=== PATIENT | female | born 1955 | race Caucasian/White ===

== ENCOUNTER 2017-02-14 12:26 | Inpatient (IN) | payer OTHER ==
[2017-02-14 13:34] LABS: ADD MAN DIFF? NO
[2017-02-14 13:38] LABS: WHITE BLOOD COUNT 10.7 10^3/ul (4.8-10.8)
[2017-02-14 13:38] LABS: BASOPHILS % 0.3 % (0.0-2.0); EOSINOPHILS # 0.1 10^3/ul (0.0-0.5); EOSINOPHILS % 0.5 % (0.0-7.0); HEMOGLOBIN 9.9 g/dl (12.0-16.0); LYMPHOCYTES # 2.4 10^3/ul (0.8-2.9); LYMPHOCYTES % 22.9 % (15.0-51.0); MEAN CORPUSCULAR HEMOGLOBIN 30.6 pg (29.0-33.0); MEAN CORPUSCULAR HGB CONC 31.9 g/dl (32.0-37.0); MEAN CORPUSCULAR VOLUME 95.7 fl (82.0-101.0); MEAN PLATELET VOLUME 8.8 fl (7.4-10.4); MONOCYTE # 0.7 10^3/ul (0.3-0.9); MONOCYTES % 6.7 % (0.0-11.0); NEUTROPHIL # 7.4 10^3/ul (1.6-7.5); NEUTROPHILS % 69.3 % (39.0-77.0); PLATELET COUNT 445 10^3/UL (140-415); RED BLOOD COUNT 3.24 10^6/ul (4.20-5.40); RED CELL DISTRIBUTION WIDTH 14.2 % (11.5-14.5)
[2017-02-14 14:00] LABS: ALANINE AMINOTRANSFERASE 69 IU/L (13-69); ALBUMIN 3.8 g/dl (3.3-4.9); ALBUMIN/GLOBULIN RATIO 0.76; ALKALINE PHOSPHATASE 436 IU/L (42-121); ANION GAP 17 (8-16); ASPARTATE AMINO TRANSFERASE 43 IU/L (15-46); BILIRUBIN,INDIRECT 0.2 mg/dl (0-1.1); BILIRUBIN,TOTAL 0.2 mg/dl (0.2-1.3); BLOOD UREA NITROGEN 13 mg/dl (7-20); CALCIUM 8.9 mg/dl (8.4-10.2); CARBON DIOXIDE 19 mmol/L (21-31); CHLORIDE 104 mmol/L (97-110); CREATININE 0.61 mg/dl (0.44-1.00); GLUCOSE 82 mg/dl (70-220); LIPASE 330 U/L (23-300); POTASSIUM 3.4 mmol/L (3.5-5.1); SODIUM 137 mmol/L (135-144); TOTAL PROTEIN 8.8 g/dl (6.1-8.1)
[2017-02-14] MEDS ORDERED: NA PHOSPHATE/BIPHOS 133 ML ENEMA PR (16:00)
[2017-02-14] MEDS ORDERED: ONDANSETRON 4 MG INJ IV (16:00)
[2017-02-14] MEDS ORDERED: ALBUTEROL/IPRATROPIUM (NEB) 3 ML AMP HHN (16:00)
[2017-02-14] MEDS ORDERED: ACETAMINOPHEN 325 MG TAB PO (16:00)
[2017-02-14] MEDS ORDERED: DOCUSATE SODIUM 100 MG CAP PO (16:00)
[2017-02-14] MEDS ORDERED: MAGNESIUM HYDROXIDE 30ML CUP PO (16:00)
[2017-02-14] MEDS: PROMETHAZINE (1.25 MG/ML) 5 ML CUP PO (16:00)
[2017-02-14] MEDS ORDERED: hydrALAzine 20 MG INJ IV (16:00)
[2017-02-14] MEDS ORDERED: NITROGLYCERIN (SL) 0.4 MG TAB SL (16:00)
[2017-02-14] MEDS: LORAZEPAM 1 MG TAB PO (16:00)
[2017-02-14] MEDS ORDERED: LORAZEPAM 2 MG INJ IV (16:00)
[2017-02-14 17:21] LABS: INR 1.08; PT RATIO 1.1
[2017-02-14 17:22] LABS: PARTIAL THROMBOPLASTIN TIME 43.2 Sec (25.0-35.0)
[2017-02-14] MEDS ORDERED: TOPIRAMATE 200 MG GTB (21:00)
[2017-02-14] MEDS: METOPROLOL 25 MG TAB GTB (23:04)
[2017-02-14] MEDS: SOD CHLORIDE 0.45% 1,000 ML IV (23:04)
[2017-02-14] MEDS: DOCUSATE SODIUM 100 MG CAP PO (23:05)
[2017-02-14] MEDS: HEPARIN 5,000 UNIT/0.5 ML VIAL SC (23:07)
[2017-02-15] MEDS: PROMETHAZINE (1.25 MG/ML PO SYG) PO ×2 (02:20→06:24)
[2017-02-15] MEDS: PHENYTOIN (25 MG/ML PO SYG) GTB ×4 (02:21→20:48)
[2017-02-15] MEDS: SOD CHLORIDE 0.45% 1,000 ML IV ×2 (05:20→13:56)
[2017-02-15 06:07] LABS: ADD MAN DIFF? NO
[2017-02-15 06:17] LABS: WHITE BLOOD COUNT 8.9 10^3/ul (4.8-10.8)
[2017-02-15 06:17] LABS: BASOPHILS % 0.4 % (0.0-2.0); EOSINOPHILS % 0.4 % (0.0-7.0); HEMATOCRIT 28.7 % (37.0-47.0); HEMOGLOBIN 9.4 g/dl (12.0-16.0); LYMPHOCYTES % 22.5 % (15.0-51.0); MEAN CORPUSCULAR HEMOGLOBIN 30.8 pg (29.0-33.0); MEAN CORPUSCULAR HGB CONC 32.8 g/dl (32.0-37.0); MEAN CORPUSCULAR VOLUME 94.1 fl (82.0-101.0); MEAN PLATELET VOLUME 9.3 fl (7.4-10.4); MONOCYTE # 0.6 10^3/ul (0.3-0.9); MONOCYTES % 6.8 % (0.0-11.0); NEUTROPHIL # 6.2 10^3/ul (1.6-7.5); NEUTROPHILS % 69.7 % (39.0-77.0); PLATELET COUNT 413 10^3/UL (140-415); RED BLOOD COUNT 3.05 10^6/ul (4.20-5.40); RED CELL DISTRIBUTION WIDTH 14.2 % (11.5-14.5)
[2017-02-15 06:33] LABS: ANION GAP 17 (8-16); BLOOD UREA NITROGEN 12 mg/dl (7-20); CALCIUM 8.7 mg/dl (8.4-10.2); CARBON DIOXIDE 20 mmol/L (21-31); CHLORIDE 106 mmol/L (97-110); CREATININE 0.53 mg/dl (0.44-1.00); GLUCOSE 82 mg/dl (70-220); MAGNESIUM 1.9 mg/dl (1.7-2.5); PHOSPHORUS 4.3 mg/dl (2.5-4.9); POTASSIUM 3.6 mmol/L (3.5-5.1); SODIUM 139 mmol/L (135-144)
[2017-02-15 06:37] LABS: CHOL/HDL RATIO 4.2 RATIO; HDL CHOLESTEROL 41 mg/dl (35-98); LDL CHOLESTEROL,CALCULATED 100 mg/dl; TRIGLYCERIDES 172 mg/dl (0-149)
[2017-02-15 06:37] LABS: CHOLESTEROL 175 mg/dl (100-200)
[2017-02-15 06:51] LABS: HEMOGLOBIN A1C 4.8 % (0-5.9)
[2017-02-15 07:08] LABS: THYROID STIMULATING HORMONE 0.908 MIU/L (0.465-4.680)
[2017-02-15] MEDS: METOPROLOL 25 MG TAB GTB ×2 (09:03→20:48)
[2017-02-15] MEDS: LANSOPRAZOLE 30 MG CAP GTB (09:03)
[2017-02-15] MEDS: ESCITALOPRAM 10 MG TAB GTB (09:03)
[2017-02-15] MEDS: MULTIVITAMINS THERAPEUTIC TAB GTB (09:03)
[2017-02-15] MEDS: DOCUSATE SODIUM 100 MG CAP PO (09:03)
[2017-02-15] MEDS: LEVOFLOXACIN 750MG/D5W (PMX) 150 ML IVPB (09:09)
[2017-02-15] MEDS: HEPARIN 5,000 UNIT/0.5 ML VIAL SC ×2 (09:24→20:54)
[2017-02-15] MEDS: DIPHENHYDRAMINE 25 MG CAP PO (11:11)
[2017-02-15] MEDS: PROMETHAZINE/DM (CUP) PO ×2 (11:17→17:30)
[2017-02-15] MEDS: DOCUSATE SODIUM 10 MG/ML (10ML CUP) PO (20:48)
[2017-02-16] MEDS: SOD CHLORIDE 0.45% 1,000 ML IV ×3 (05:31→22:00)
[2017-02-16] MEDS: PROMETHAZINE/DM (CUP) PO ×4 (05:31→17:42)
[2017-02-16] MEDS: PHENYTOIN (25 MG/ML PO SYG) GTB ×3 (08:54→21:59)
[2017-02-16] MEDS: DOCUSATE SODIUM 10 MG/ML (10ML CUP) PO ×2 (08:55→21:59)
[2017-02-16] MEDS: ESCITALOPRAM 10 MG TAB GTB (08:55)
[2017-02-16] MEDS: LANSOPRAZOLE 30 MG CAP GTB (08:55)
[2017-02-16] MEDS: MULTIVITAMINS THERAPEUTIC TAB GTB (08:55)
[2017-02-16] MEDS: METOPROLOL 25 MG TAB GTB ×2 (08:56→21:59)
[2017-02-16] MEDS: HEPARIN 5,000 UNIT/0.5 ML VIAL SC ×2 (09:00→22:18)
[2017-02-16] MEDS: LEVOFLOXACIN 750MG/D5W (PMX) 150 ML IVPB (09:09)
[2017-02-16 11:13] LABS: ADD MAN DIFF? NO
[2017-02-16 11:19] LABS: BASOPHILS % 0.4 % (0.0-2.0); EOSINOPHILS % 0.1 % (0.0-7.0); HEMATOCRIT 30.1 % (37.0-47.0); HEMOGLOBIN 9.8 g/dl (12.0-16.0); LYMPHOCYTES # 2.1 10^3/ul (0.8-2.9); LYMPHOCYTES % 25.4 % (15.0-51.0); MEAN CORPUSCULAR HEMOGLOBIN 30.2 pg (29.0-33.0); MEAN CORPUSCULAR HGB CONC 32.6 g/dl (32.0-37.0); MEAN CORPUSCULAR VOLUME 92.9 fl (82.0-101.0); MEAN PLATELET VOLUME 9.3 fl (7.4-10.4); MONOCYTE # 0.6 10^3/ul (0.3-0.9); MONOCYTES % 7.2 % (0.0-11.0); NEUTROPHIL # 5.6 10^3/ul (1.6-7.5); NEUTROPHILS % 66.4 % (39.0-77.0); PLATELET COUNT 402 10^3/UL (140-415); RED BLOOD COUNT 3.24 10^6/ul (4.20-5.40); RED CELL DISTRIBUTION WIDTH 13.7 % (11.5-14.5)
[2017-02-16 11:19] LABS: WHITE BLOOD COUNT 8.4 10^3/ul (4.8-10.8)
[2017-02-16 11:44] LABS: LIPASE 364 U/L (23-300)
[2017-02-16 11:45] LABS: ANION GAP 19 (8-16); BLOOD UREA NITROGEN 9 mg/dl (7-20); CARBON DIOXIDE 22 mmol/L (21-31); CHLORIDE 102 mmol/L (97-110); CREATININE 0.51 mg/dl (0.44-1.00); GLUCOSE 85 mg/dl (70-220); POTASSIUM 3.6 mmol/L (3.5-5.1); SODIUM 139 mmol/L (135-144)
[2017-02-16] MEDS: IOHEXOL 350MG/ML 50 ML BTL (17:14)
[2017-02-17] MEDS: PROMETHAZINE/DM (CUP) PO ×4 (05:24→18:00)
[2017-02-17] MEDS: LANSOPRAZOLE 30 MG CAP GTB (08:41)
[2017-02-17] MEDS: DOCUSATE SODIUM 10 MG/ML (10ML CUP) PO ×2 (08:41→22:10)
[2017-02-17] MEDS: MULTIVITAMINS THERAPEUTIC TAB GTB (08:41)
[2017-02-17] MEDS: PHENYTOIN (25 MG/ML PO SYG) GTB ×3 (08:42→22:11)
[2017-02-17] MEDS: ESCITALOPRAM 10 MG TAB GTB (08:42)
[2017-02-17] MEDS: METOPROLOL 25 MG TAB GTB ×2 (08:42→22:15)
[2017-02-17] MEDS: LEVOFLOXACIN 750MG/D5W (PMX) 150 ML IVPB (08:42)
[2017-02-17] MEDS: HEPARIN 5,000 UNIT/0.5 ML VIAL SC ×2 (08:56→21:00)
[2017-02-17] MEDS: SOD CHLORIDE 0.45% 1,000 ML IV ×2 (10:40→15:43)
[2017-02-17 11:18] LABS: ADD MAN DIFF? NO
[2017-02-17 11:24] LABS: BASOPHILS % 0.2 % (0.0-2.0); EOSINOPHILS % 0.1 % (0.0-7.0); HEMOGLOBIN 9.3 g/dl (12.0-16.0); LYMPHOCYTES # 1.2 10^3/ul (0.8-2.9); LYMPHOCYTES % 10.2 % (15.0-51.0); MEAN CORPUSCULAR HEMOGLOBIN 31.2 pg (29.0-33.0); MEAN CORPUSCULAR HGB CONC 33.2 g/dl (32.0-37.0); MEAN PLATELET VOLUME 8.9 fl (7.4-10.4); MONOCYTE # 0.8 10^3/ul (0.3-0.9); MONOCYTES % 7.1 % (0.0-11.0); NEUTROPHIL # 9.6 10^3/ul (1.6-7.5); NEUTROPHILS % 82.1 % (39.0-77.0); PLATELET COUNT 421 10^3/UL (140-415); RED BLOOD COUNT 2.98 10^6/ul (4.20-5.40); RED CELL DISTRIBUTION WIDTH 13.8 % (11.5-14.5)
[2017-02-17 11:24] LABS: WHITE BLOOD COUNT 11.7 10^3/ul (4.8-10.8)
[2017-02-17 11:50] LABS: ANION GAP 17 (8-16); BLOOD UREA NITROGEN 7 mg/dl (7-20); CALCIUM 8.4 mg/dl (8.4-10.2); CARBON DIOXIDE 24 mmol/L (21-31); CHLORIDE 98 mmol/L (97-110); CREATININE 0.53 mg/dl (0.44-1.00); GLUCOSE 118 mg/dl (70-220); SODIUM 136 mmol/L (135-144)
[2017-02-17] MEDS: TOPIRAMATE 100 MG TAB GTB ×2 (12:37→22:11)
[2017-02-17] MEDS: ACETAMINOPHEN 650MG/20.3ML CUP GTB (14:51)
[2017-02-17] MEDS: ONDANSETRON 4 MG INJ IV (22:35)
[2017-02-18] MEDS: SOD CHLORIDE 0.45% 1,000 ML IV ×3 (05:16→13:20)
[2017-02-18] MEDS: ACETAMINOPHEN 650MG/20.3ML CUP GTB (05:25)
[2017-02-18] MEDS: PROMETHAZINE/DM (CUP) PO ×4 (05:26→17:55)
[2017-02-18] MEDS: LANSOPRAZOLE 30 MG CAP GTB (08:45)
[2017-02-18] MEDS: DOCUSATE SODIUM 10 MG/ML (10ML CUP) PO ×2 (08:45→21:38)
[2017-02-18] MEDS: ESCITALOPRAM 10 MG TAB GTB (08:45)
[2017-02-18] MEDS: MULTIVITAMINS THERAPEUTIC TAB GTB (08:45)
[2017-02-18] MEDS: LEVOFLOXACIN 750MG/D5W (PMX) 150 ML IVPB (08:46)
[2017-02-18] MEDS: TOPIRAMATE 100 MG TAB GTB ×2 (08:46→21:38)
[2017-02-18] MEDS: PHENYTOIN (25 MG/ML PO SYG) GTB ×3 (08:54→21:37)
[2017-02-18] MEDS: HEPARIN 5,000 UNIT/0.5 ML VIAL SC ×2 (08:54→21:39)
[2017-02-18] MEDS: METOPROLOL 25 MG TAB GTB ×2 (08:56→21:38)
[2017-02-18 10:31] LABS: ADD MAN DIFF? NO
[2017-02-18 10:35] LABS: BASOPHILS % 0.2 % (0.0-2.0); EOSINOPHILS % 0.2 % (0.0-7.0); HEMATOCRIT 27.5 % (37.0-47.0); LYMPHOCYTES % 15.1 % (15.0-51.0); MEAN CORPUSCULAR HEMOGLOBIN 30.7 pg (29.0-33.0); MEAN CORPUSCULAR HGB CONC 32.7 g/dl (32.0-37.0); MEAN CORPUSCULAR VOLUME 93.9 fl (82.0-101.0); MEAN PLATELET VOLUME 8.7 fl (7.4-10.4); MONOCYTE # 1.2 10^3/ul (0.3-0.9); MONOCYTES % 9.3 % (0.0-11.0); NEUTROPHILS % 74.8 % (39.0-77.0); PLATELET COUNT 400 10^3/UL (140-415); RED BLOOD COUNT 2.93 10^6/ul (4.20-5.40); RED CELL DISTRIBUTION WIDTH 13.7 % (11.5-14.5)
[2017-02-18 10:35] LABS: WHITE BLOOD COUNT 13.3 10^3/ul (4.8-10.8)
[2017-02-18 11:00] LABS: ANION GAP 15 (8-16); BLOOD UREA NITROGEN 3 mg/dl (7-20); CARBON DIOXIDE 24 mmol/L (21-31); CHLORIDE 104 mmol/L (97-110); CREATININE 0.59 mg/dl (0.44-1.00); GLUCOSE 105 mg/dl (70-220); POTASSIUM 3.2 mmol/L (3.5-5.1); SODIUM 140 mmol/L (135-144)
[2017-02-18 11:01] LABS: CALCIUM 8.9 mg/dl (8.4-10.2)
[2017-02-18] MEDS: POTASSIUM CHLORIDE 250 ML IVPB ×2 (13:11→17:01)
[2017-02-19] MEDS: SOD CHLORIDE 0.45% 1,000 ML IV (00:21)
[2017-02-19] MEDS: PROMETHAZINE/DM (CUP) PO ×3 (05:43→12:00)
[2017-02-19] MEDS: LEVOFLOXACIN 750MG/D5W (PMX) 150 ML IVPB (08:52)
[2017-02-19] MEDS: TOPIRAMATE 100 MG TAB GTB ×2 (08:53→20:44)
[2017-02-19] MEDS: LANSOPRAZOLE 30 MG CAP GTB (08:53)
[2017-02-19] MEDS: ESCITALOPRAM 10 MG TAB GTB (08:53)
[2017-02-19] MEDS: DOCUSATE SODIUM 10 MG/ML (10ML CUP) PO ×2 (08:53→20:43)
[2017-02-19] MEDS: MULTIVITAMINS THERAPEUTIC TAB GTB (08:53)
[2017-02-19] MEDS: PHENYTOIN (25 MG/ML PO SYG) GTB ×3 (08:54→20:43)
[2017-02-19] MEDS: HEPARIN 5,000 UNIT/0.5 ML VIAL SC (08:55)
[2017-02-19 09:52] LABS: ADD MAN DIFF? NO
[2017-02-19] MEDS: METOPROLOL 25 MG TAB GTB ×2 (09:57→20:44)
[2017-02-19 09:58] LABS: WHITE BLOOD COUNT 13.2 10^3/ul (4.8-10.8)
[2017-02-19 09:58] LABS: BASOPHILS % 0.2 % (0.0-2.0); HEMATOCRIT 26.4 % (37.0-47.0); HEMOGLOBIN 8.7 g/dl (12.0-16.0); LYMPHOCYTES % 15.2 % (15.0-51.0); MEAN CORPUSCULAR HEMOGLOBIN 30.9 pg (29.0-33.0); MEAN CORPUSCULAR VOLUME 93.6 fl (82.0-101.0); MEAN PLATELET VOLUME 8.8 fl (7.4-10.4); MONOCYTE # 1.1 10^3/ul (0.3-0.9); MONOCYTES % 8.4 % (0.0-11.0); NEUTROPHILS % 75.9 % (39.0-77.0); PLATELET COUNT 381 10^3/UL (140-415); RED BLOOD COUNT 2.82 10^6/ul (4.20-5.40); RED CELL DISTRIBUTION WIDTH 14.1 % (11.5-14.5)
[2017-02-19 10:33] LABS: ANION GAP 13 (8-16); BLOOD UREA NITROGEN 5 mg/dl (7-20); CALCIUM 8.6 mg/dl (8.4-10.2); CARBON DIOXIDE 22 mmol/L (21-31); CHLORIDE 104 mmol/L (97-110); CREATININE 0.59 mg/dl (0.44-1.00); GLUCOSE 106 mg/dl (70-220); POTASSIUM 3.3 mmol/L (3.5-5.1); SODIUM 136 mmol/L (135-144)
[2017-02-19] MEDS: D5W-0.45 NACL + KCL 30 MEQ 1,000 ML IV ×2 (20:30→21:45)
[2017-02-19] MEDS: POTASSIUM CHLORIDE 20 MEQ POWDER FOR ORAL SOLN GTB (20:44)
[2017-02-20] MEDS ORDERED: EPHEDrine SULFATE 50 MG/5 ML SYG IV (06:30)
[2017-02-20] MEDS ORDERED: HYDROmorphONE (0.2 MG/ML) 10ML SYG IV ×3 (06:30)
[2017-02-20] MEDS ORDERED: ONDANSETRON 4 MG INJ IV (06:30)
[2017-02-20] MEDS ORDERED: MIDAZOLAM 1 MG/ML 2 ML INJ IV (06:30)
[2017-02-20] MEDS ORDERED: hydrALAzine 20 MG INJ IV (06:30)
[2017-02-20] MEDS ORDERED: morphine (1 MG/ML) 10ML SYRINGE IV ×3 (06:30)
[2017-02-20] MEDS ORDERED: ATROPINE 1 MG/10 ML SYRINGE IV (06:30)
[2017-02-20] MEDS ORDERED: OXYCODONE/ACETAMINOPHEN (5/325) TAB PO ×2 (06:30)
[2017-02-20] MEDS ORDERED: LABETALOL HCL 20MG INJ IV (06:30)
[2017-02-20] MEDS ORDERED: DIPHENHYDRAMINE 50 MG INJ IV (06:30)
[2017-02-20] MEDS ORDERED: MEPERIDINE 25 MG INJ IV (06:30)
[2017-02-20] MEDS ORDERED: FENTAnyl 50 MCG/ML VIAL IV ×2 (06:30)
[2017-02-20] MEDS: DOCUSATE SODIUM 10 MG/ML (10ML CUP) PO ×2 (09:00→20:20)
[2017-02-20] MEDS: TOPIRAMATE 100 MG TAB GTB ×2 (09:00→20:23)
[2017-02-20] MEDS: LANSOPRAZOLE 30 MG CAP GTB (09:00)
[2017-02-20] MEDS: ESCITALOPRAM 10 MG TAB GTB (09:00)
[2017-02-20] MEDS: MULTIVITAMINS THERAPEUTIC TAB GTB (09:00)
[2017-02-20] MEDS: METOPROLOL 25 MG TAB GTB ×2 (09:00→21:00)
[2017-02-20] MEDS: PHENYTOIN (25 MG/ML PO SYG) GTB ×3 (09:00→20:19)
[2017-02-20] MEDS: ACETAMINOPHEN 650MG/20.3ML CUP GTB (10:04)
[2017-02-20] MEDS: D5W-0.45 NACL + KCL 30 MEQ 1,000 ML IV ×2 (10:16→17:41)
[2017-02-20] MEDS ORDERED: GLYCOPYRROLATE 0.4 MG INJ (10:28)
[2017-02-20] MEDS ORDERED: LIDOCAINE 2% (SDV) 5 ML INJ (10:28)
[2017-02-20] MEDS ORDERED: ROCURONIUM 50 MG INJ (10:28)
[2017-02-20] MEDS ORDERED: PROPOFOL 20 ML (10:28)
[2017-02-20] MEDS ORDERED: NEOSTIGMINE 3 MG/3 ML SYRINGE (10:28)
[2017-02-20] MEDS ORDERED: MIDAZOLAM 1 MG/ML 2 ML INJ (10:29)
[2017-02-20] MEDS ORDERED: ONDANSETRON 4 MG INJ (10:29)
[2017-02-20] MEDS ORDERED: FENTAnyl 50 MCG/ML VIAL (10:29)
[2017-02-20] MEDS ORDERED: IOHEXOL 300MG/ML 30 ML BTL (11:22)
[2017-02-20] MEDS ORDERED: DEXAMETHASONE 4 MG/ML 1 ML INJ (12:38)
[2017-02-21] MEDS: D5W-0.45 NACL + KCL 30 MEQ 1,000 ML IV ×2 (01:06→11:38)
[2017-02-21] MEDS: ONDANSETRON 4 MG INJ IV (03:06)
[2017-02-21] MEDS: HYDROCODONE/APAP (5/325) TAB PO (05:11)
[2017-02-21 06:27] LABS: ADD MAN DIFF? NO
[2017-02-21 06:31] LABS: WHITE BLOOD COUNT 17.9 10^3/ul (4.8-10.8)
[2017-02-21 06:31] LABS: BASOPHILS % 0.1 % (0.0-2.0); HEMATOCRIT 25.4 % (37.0-47.0); HEMOGLOBIN 8.5 g/dl (12.0-16.0); LYMPHOCYTES # 0.8 10^3/ul (0.8-2.9); LYMPHOCYTES % 4.3 % (15.0-51.0); MEAN CORPUSCULAR HEMOGLOBIN 30.5 pg (29.0-33.0); MEAN CORPUSCULAR HGB CONC 33.5 g/dl (32.0-37.0); MONOCYTE # 0.6 10^3/ul (0.3-0.9); MONOCYTES % 3.2 % (0.0-11.0); NEUTROPHIL # 16.4 10^3/ul (1.6-7.5); NEUTROPHILS % 91.8 % (39.0-77.0); PLATELET COUNT 368 10^3/UL (140-415); RED BLOOD COUNT 2.79 10^6/ul (4.20-5.40); RED CELL DISTRIBUTION WIDTH 13.7 % (11.5-14.5)
[2017-02-21 06:56] LABS: ANION GAP 15 (8-16); BLOOD UREA NITROGEN 7 mg/dl (7-20); CALCIUM 8.4 mg/dl (8.4-10.2); CARBON DIOXIDE 18 mmol/L (21-31); CHLORIDE 106 mmol/L (97-110); CREATININE 0.64 mg/dl (0.44-1.00); GLUCOSE 141 mg/dl (70-220); POTASSIUM 3.3 mmol/L (3.5-5.1); SODIUM 136 mmol/L (135-144)
[2017-02-21] MEDS: METOPROLOL 25 MG TAB GTB ×2 (09:00→21:39)
[2017-02-21] MEDS: TOPIRAMATE 100 MG TAB GTB ×2 (09:02→21:37)
[2017-02-21] MEDS: ESCITALOPRAM 10 MG TAB GTB (09:03)
[2017-02-21] MEDS: MULTIVITAMINS THERAPEUTIC TAB GTB (09:03)
[2017-02-21] MEDS: PHENYTOIN (25 MG/ML PO SYG) GTB ×3 (09:03→21:00)
[2017-02-21] MEDS: LANSOPRAZOLE 30 MG CAP GTB (09:03)
[2017-02-21] MEDS: DOCUSATE SODIUM 10 MG/ML (10ML CUP) PO ×2 (09:03→21:00)
[2017-02-21] MEDS: SOD CHLORIDE 0.9% 1,000 ML IV ×2 (09:52→11:57)
[2017-02-21] MEDS: ACETAMINOPHEN 650MG/20.3ML CUP GTB (10:44)
[2017-02-21 12:56] LABS: LACTIC ACID 2.3 mmol/L (0.5-2.0)
[2017-02-21] MEDS: PIPER-TAZO 3.375 GM IV (PMX) 50 ML IVPB ×2 (13:58→19:01)
[2017-02-21] MEDS ORDERED: METOPROLOL 5 MG INJ (14:57)
[2017-02-21] MEDS: METOPROLOL 5 MG INJ IV (15:14)
[2017-02-21] MEDS ORDERED: DILTIAZEM 25 MG INJ (15:16)
[2017-02-21] MEDS ORDERED: DIGOXIN 500 MCG INJ IV ×2 (15:39→17:30)
[2017-02-21] MEDS: DILTIAZEM 25 MG INJ IV (15:41)
[2017-02-21] MEDS: DIGOXIN 500 MCG INJ IV (15:45)
[2017-02-22] MEDS: PIPER-TAZO 3.375 GM IV (PMX) 50 ML IVPB ×4 (00:26→17:33)
[2017-02-22] MEDS: D5W-0.45 NACL + KCL 30 MEQ 1,000 ML IV (05:25)
[2017-02-22] MEDS: LANSOPRAZOLE 30 MG CAP GTB (08:20)
[2017-02-22] MEDS: MULTIVITAMINS THERAPEUTIC TAB GTB (08:20)
[2017-02-22 08:21] LABS: ADD MAN DIFF? NO
[2017-02-22] MEDS: TOPIRAMATE 100 MG TAB GTB ×2 (08:22→20:18)
[2017-02-22] MEDS: ESCITALOPRAM 10 MG TAB GTB (08:22)
[2017-02-22] MEDS: DOCUSATE SODIUM 10 MG/ML (10ML CUP) PO ×2 (08:22→20:18)
[2017-02-22 08:27] LABS: WHITE BLOOD COUNT 14.2 10^3/ul (4.8-10.8)
[2017-02-22 08:27] LABS: BASOPHILS % 0.2 % (0.0-2.0); EOSINOPHILS % 0.1 % (0.0-7.0); HEMOGLOBIN 7.3 g/dl (12.0-16.0); LYMPHOCYTES # 1.4 10^3/ul (0.8-2.9); LYMPHOCYTES % 9.8 % (15.0-51.0); MEAN CORPUSCULAR HEMOGLOBIN 30.5 pg (29.0-33.0); MEAN CORPUSCULAR HGB CONC 33.2 g/dl (32.0-37.0); MEAN CORPUSCULAR VOLUME 92.1 fl (82.0-101.0); MEAN PLATELET VOLUME 9.6 fl (7.4-10.4); MONOCYTE # 0.9 10^3/ul (0.3-0.9); MONOCYTES % 6.6 % (0.0-11.0); NEUTROPHIL # 11.7 10^3/ul (1.6-7.5); NEUTROPHILS % 82.7 % (39.0-77.0); PLATELET COUNT 327 10^3/UL (140-415); RED BLOOD COUNT 2.39 10^6/ul (4.20-5.40); RED CELL DISTRIBUTION WIDTH 13.9 % (11.5-14.5)
[2017-02-22] MEDS: METOPROLOL 25 MG TAB GTB ×2 (08:32→20:19)
[2017-02-22 08:59] LABS: ANION GAP 14 (8-16); BLOOD UREA NITROGEN 6 mg/dl (7-20); CALCIUM 7.9 mg/dl (8.4-10.2); CARBON DIOXIDE 17 mmol/L (21-31); CHLORIDE 108 mmol/L (97-110); CREATININE 0.61 mg/dl (0.44-1.00); GLUCOSE 103 mg/dl (70-220); POTASSIUM 3.1 mmol/L (3.5-5.1); SODIUM 136 mmol/L (135-144)
[2017-02-22] MEDS: PHENYTOIN (25 MG/ML PO SYG) GTB ×3 (09:31→20:18)
[2017-02-23] MEDS: PIPER-TAZO 3.375 GM IV (PMX) 50 ML IVPB ×5 (06:00→23:56)
[2017-02-23 06:05] LABS: ADD MAN DIFF? NO
[2017-02-23 06:33] LABS: BASOPHILS % 0.3 % (0.0-2.0); EOSINOPHILS % 0.1 % (0.0-7.0); HEMATOCRIT 22.2 % (37.0-47.0); HEMOGLOBIN 7.6 g/dl (12.0-16.0); LYMPHOCYTES # 1.5 10^3/ul (0.8-2.9); LYMPHOCYTES % 10.2 % (15.0-51.0); MEAN CORPUSCULAR HEMOGLOBIN 30.9 pg (29.0-33.0); MEAN CORPUSCULAR HGB CONC 34.2 g/dl (32.0-37.0); MEAN CORPUSCULAR VOLUME 90.2 fl (82.0-101.0); MEAN PLATELET VOLUME 9.3 fl (7.4-10.4); MONOCYTE # 1.2 10^3/ul (0.3-0.9); MONOCYTES % 8.3 % (0.0-11.0); NEUTROPHIL # 12.1 10^3/ul (1.6-7.5); NEUTROPHILS % 80.4 % (39.0-77.0); PLATELET COUNT 359 10^3/UL (140-415); RED BLOOD COUNT 2.46 10^6/ul (4.20-5.40); RED CELL DISTRIBUTION WIDTH 13.8 % (11.5-14.5)
[2017-02-23 07:03] LABS: ANION GAP 14 (8-16); BLOOD UREA NITROGEN 6 mg/dl (7-20); CALCIUM 8.2 mg/dl (8.4-10.2); CARBON DIOXIDE 18 mmol/L (21-31); CHLORIDE 103 mmol/L (97-110); CREATININE 0.63 mg/dl (0.44-1.00); GLUCOSE 98 mg/dl (70-220); SODIUM 132 mmol/L (135-144)
[2017-02-23 07:22] LABS: POTASSIUM 2.9 mmol/L (3.5-5.1)
[2017-02-23 07:52] LABS: MAGNESIUM 1.5 mg/dl (1.7-2.5)
[2017-02-23] MEDS ORDERED: POTASSIUM CHLORIDE 250 ML IVPB (09:00)
[2017-02-23] MEDS: DOCUSATE SODIUM 10 MG/ML (10ML CUP) PO ×2 (09:01→20:25)
[2017-02-23] MEDS: LANSOPRAZOLE 30 MG CAP GTB (09:01)
[2017-02-23] MEDS: TOPIRAMATE 100 MG TAB GTB ×2 (09:02→20:25)
[2017-02-23] MEDS: ESCITALOPRAM 10 MG TAB GTB (09:02)
[2017-02-23] MEDS: MULTIVITAMINS THERAPEUTIC TAB GTB (09:02)
[2017-02-23] MEDS: METOPROLOL 25 MG TAB GTB ×2 (09:03→20:25)
[2017-02-23] MEDS: POTASSIUM CHLORIDE 20 MEQ POWDER FOR ORAL SOLN GTB (09:20)
[2017-02-23] MEDS: PHENYTOIN (25 MG/ML PO SYG) GTB ×3 (09:38→20:26)
[2017-02-23] MEDS: POTASSIUM CHLORIDE 20 MEQ POWDER FOR ORAL SOLN PO (11:21)
[2017-02-23] MEDS: MAGNESIUM OXIDE 400 MG TAB PO (13:53)
[2017-02-23] MEDS: ONDANSETRON 4 MG INJ IV (20:30)
[2017-02-24] MEDS: ONDANSETRON 4 MG INJ IV (04:28)
[2017-02-24] MEDS: ACETAMINOPHEN 650MG/20.3ML CUP GTB (04:28)
[2017-02-24] MEDS: PIPER-TAZO 3.375 GM IV (PMX) 50 ML IVPB ×3 (05:00→18:17)
[2017-02-24 05:55] LABS: ADD MAN DIFF? NO
[2017-02-24 06:08] LABS: BASOPHILS % 0.2 % (0.0-2.0); HEMOGLOBIN 7.8 g/dl (12.0-16.0); LYMPHOCYTES # 1.4 10^3/ul (0.8-2.9); LYMPHOCYTES % 8.3 % (15.0-51.0); MEAN CORPUSCULAR HEMOGLOBIN 30.8 pg (29.0-33.0); MEAN CORPUSCULAR HGB CONC 33.9 g/dl (32.0-37.0); MEAN CORPUSCULAR VOLUME 90.9 fl (82.0-101.0); MEAN PLATELET VOLUME 9.3 fl (7.4-10.4); MONOCYTE # 1.4 10^3/ul (0.3-0.9); MONOCYTES % 7.9 % (0.0-11.0); NEUTROPHIL # 14.2 10^3/ul (1.6-7.5); NEUTROPHILS % 82.8 % (39.0-77.0); PLATELET COUNT 404 10^3/UL (140-415); RED BLOOD COUNT 2.53 10^6/ul (4.20-5.40); RED CELL DISTRIBUTION WIDTH 13.8 % (11.5-14.5)
[2017-02-24 06:08] LABS: WHITE BLOOD COUNT 17.2 10^3/ul (4.8-10.8)
[2017-02-24 06:13] LABS: INR 1.22; PROTIME 15.6 Sec (11.9-14.9); PT RATIO 1.2
[2017-02-24 06:14] LABS: PARTIAL THROMBOPLASTIN TIME 44.3 Sec (25.0-35.0)
[2017-02-24 06:16] LABS: LACTIC ACID 0.8 mmol/L (0.5-2.0)
[2017-02-24 06:29] LABS: ALANINE AMINOTRANSFERASE 60 IU/L (13-69); ALBUMIN/GLOBULIN RATIO 0.65; ALKALINE PHOSPHATASE 381 IU/L (42-121); AMYLASE 62 U/L (11-123); ANION GAP 16 (8-16); ASPARTATE AMINO TRANSFERASE 29 IU/L (15-46); BILIRUBIN,INDIRECT 0.4 mg/dl (0-1.1); BILIRUBIN,TOTAL 0.6 mg/dl (0.2-1.3); BLOOD UREA NITROGEN 6 mg/dl (7-20); CALCIUM 8.4 mg/dl (8.4-10.2); CARBON DIOXIDE 18 mmol/L (21-31); CHLORIDE 100 mmol/L (97-110); CREATININE 0.65 mg/dl (0.44-1.00); GLUCOSE 99 mg/dl (70-220); LIPASE 103 U/L (23-300); MAGNESIUM 1.6 mg/dl (1.7-2.5); POTASSIUM 3.3 mmol/L (3.5-5.1); SODIUM 131 mmol/L (135-144); TOTAL PROTEIN 7.6 g/dl (6.1-8.1)
[2017-02-24] MEDS: TOPIRAMATE 100 MG TAB GTB ×2 (09:00→20:24)
[2017-02-24] MEDS: METOPROLOL 25 MG TAB GTB ×2 (09:00→20:23)
[2017-02-24] MEDS: DOCUSATE SODIUM 10 MG/ML (10ML CUP) PO ×2 (09:00→20:26)
[2017-02-24] MEDS: MULTIVITAMINS THERAPEUTIC TAB GTB (09:00)
[2017-02-24] MEDS: PHENYTOIN (25 MG/ML PO SYG) GTB ×3 (09:00→20:26)
[2017-02-24] MEDS: ESCITALOPRAM 10 MG TAB GTB (09:00)
[2017-02-24] MEDS: LANSOPRAZOLE 30 MG CAP GTB (09:00)
[2017-02-24] MEDS ORDERED: VANCOMYCIN IV PER PHARMACY XX (12:00)
[2017-02-24 13:33] LABS: ADD UMIC NO; UR ASCORBIC ACID NEGATIVE (NEGATIVE); UR BILIRUBIN (Dip) NEGATIVE (NEGATIVE); UR BLOOD (Dip) NEGATIVE (NEGATIVE); UR CLARITY CLEAR (CLEAR); UR COLOR AMBER (YELLOW); UR GLUCOSE (Dip) NEGATIVE (NEGATIVE); UR KETONES (Dip) TRACE mg/dL (NEGATIVE); UR LEUKOCYTE ESTERASE (Dip) NEGATIVE Leu/ul (NEGATIVE); UR NITRITE (Dip) NEGATIVE (NEGATIVE); UR SPECIFIC GRAVITY (Dip) 1.013 (1.003-1.030); UR TOTAL PROTEIN (Dip) NEGATIVE (NEGATIVE); UR UROBILINOGEN (Dip) 2+ mg/dL (NEGATIVE)
[2017-02-24] MEDS: VANCOMYCIN 1.25 GM in SOD CHLORIDE 0.9% 250 ML IVPB (14:04)
[2017-02-24] MEDS: ACETAMINOPHEN 325 MG TAB PO (20:22)
[2017-02-25] MEDS: PIPER-TAZO 3.375 GM IV (PMX) 50 ML IVPB ×4 (00:41→17:30)
[2017-02-25] MEDS: ACETAMINOPHEN 325 MG TAB PO ×2 (04:47→13:08)
[2017-02-25 05:33] LABS: ADD MAN DIFF? NO
[2017-02-25 05:39] LABS: WHITE BLOOD COUNT 16.3 10^3/ul (4.8-10.8)
[2017-02-25 05:39] LABS: BASOPHIL # 0.1 10^3/ul (0.0-0.1); BASOPHILS % 0.3 % (0.0-2.0); EOSINOPHILS % 0.1 % (0.0-7.0); HEMATOCRIT 23.6 % (37.0-47.0); LYMPHOCYTES # 1.5 10^3/ul (0.8-2.9); LYMPHOCYTES % 9.3 % (15.0-51.0); MEAN CORPUSCULAR HEMOGLOBIN 30.5 pg (29.0-33.0); MEAN CORPUSCULAR HGB CONC 33.9 g/dl (32.0-37.0); MEAN CORPUSCULAR VOLUME 90.1 fl (82.0-101.0); MEAN PLATELET VOLUME 9.3 fl (7.4-10.4); MONOCYTE # 1.2 10^3/ul (0.3-0.9); MONOCYTES % 7.5 % (0.0-11.0); NEUTROPHIL # 13.3 10^3/ul (1.6-7.5); NEUTROPHILS % 81.8 % (39.0-77.0); PLATELET COUNT 456 10^3/UL (140-415); RED BLOOD COUNT 2.62 10^6/ul (4.20-5.40); RED CELL DISTRIBUTION WIDTH 13.5 % (11.5-14.5)
[2017-02-25] MEDS: PHENYTOIN (25 MG/ML PO SYG) GTB ×3 (08:30→21:27)
[2017-02-25] MEDS: METOPROLOL 25 MG TAB GTB ×2 (08:30→21:29)
[2017-02-25] MEDS: DOCUSATE SODIUM 10 MG/ML (10ML CUP) PO ×2 (08:30→21:27)
[2017-02-25] MEDS: ESCITALOPRAM 10 MG TAB GTB (08:32)
[2017-02-25] MEDS: MULTIVITAMINS THERAPEUTIC TAB GTB (08:34)
[2017-02-25] MEDS: TOPIRAMATE 100 MG TAB GTB ×2 (08:34→21:27)
[2017-02-25] MEDS: LANSOPRAZOLE 30 MG CAP GTB (08:34)
[2017-02-25] MEDS: ACETAMINOPHEN 650MG/20.3ML CUP GTB (11:27)
[2017-02-25] MEDS: BARIUM SULF 2% 450 ML BTL (BERRY SMOOTHIE) PO (11:45)
[2017-02-25] MEDS: ONDANSETRON 4 MG INJ IV (12:03)
[2017-02-25] MEDS: IOHEXOL 300MG/ML 150 ML BTL (12:51)
[2017-02-25] MEDS: SOD CHLORIDE 0.9% 100 ML (12:51)
[2017-02-25] MEDS: VANCOMYCIN 1 GM in NS 250 ML IVPB (13:08)
[2017-02-26 05:23] LABS: ADD MAN DIFF? NO
[2017-02-26 05:29] LABS: BASOPHILS % 0.2 % (0.0-2.0); EOSINOPHILS % 0.2 % (0.0-7.0); HEMATOCRIT 20.5 % (37.0-47.0); LYMPHOCYTES # 1.9 10^3/ul (0.8-2.9); LYMPHOCYTES % 10.8 % (15.0-51.0); MEAN CORPUSCULAR HEMOGLOBIN 30.3 pg (29.0-33.0); MEAN CORPUSCULAR HGB CONC 34.1 g/dl (32.0-37.0); MEAN CORPUSCULAR VOLUME 88.7 fl (82.0-101.0); MEAN PLATELET VOLUME 9.2 fl (7.4-10.4); MONOCYTE # 1.3 10^3/ul (0.3-0.9); MONOCYTES % 7.4 % (0.0-11.0); NEUTROPHIL # 13.9 10^3/ul (1.6-7.5); NEUTROPHILS % 80.2 % (39.0-77.0); PLATELET COUNT 509 10^3/UL (140-415); RED BLOOD COUNT 2.31 10^6/ul (4.20-5.40); RED CELL DISTRIBUTION WIDTH 13.9 % (11.5-14.5)
[2017-02-26 05:29] LABS: WHITE BLOOD COUNT 17.4 10^3/ul (4.8-10.8)
[2017-02-26] MEDS: PIPER-TAZO 3.375 GM IV (PMX) 50 ML IVPB ×4 (05:59→18:03)
[2017-02-26 06:04] LABS: ANION GAP 16 (8-16); BLOOD UREA NITROGEN 5 mg/dl (7-20); CALCIUM 7.9 mg/dl (8.4-10.2); CARBON DIOXIDE 19 mmol/L (21-31); CHLORIDE 100 mmol/L (97-110); CREATININE 0.61 mg/dl (0.44-1.00); GLUCOSE 94 mg/dl (70-220); SODIUM 133 mmol/L (135-144)
[2017-02-26 06:09] LABS: POTASSIUM 2.4 mmol/L (3.5-5.1)
[2017-02-26 06:40] LABS: MAGNESIUM 1.8 mg/dl (1.7-2.5)
[2017-02-26] MEDS: METOPROLOL 25 MG TAB GTB ×2 (08:46→20:10)
[2017-02-26] MEDS: DOCUSATE SODIUM 10 MG/ML (10ML CUP) PO ×2 (09:08→20:15)
[2017-02-26] MEDS: PHENYTOIN (25 MG/ML PO SYG) GTB ×3 (09:09→20:09)
[2017-02-26] MEDS: MULTIVITAMINS THERAPEUTIC TAB GTB (09:09)
[2017-02-26] MEDS: TOPIRAMATE 100 MG TAB GTB ×2 (09:09→20:10)
[2017-02-26] MEDS: ESCITALOPRAM 10 MG TAB GTB (09:09)
[2017-02-26] MEDS: LANSOPRAZOLE 30 MG CAP GTB (09:10)
[2017-02-26] MEDS: POTASSIUM CHLORIDE 250 ML IVPB ×2 (09:19→18:03)
[2017-02-26 12:07] LABS: HEMATOCRIT 20.3 % (37.0-47.0); HEMOGLOBIN 7.2 g/dl (12.0-16.0)
[2017-02-26] MEDS: POTASSIUM CHLORIDE (SR) 20 MEQ TAB PO (13:34)
[2017-02-26] MEDS: FLUCONAZOLE 100 MG TAB PO (15:14)
[2017-02-26] MEDS: VANCOMYCIN 1 GM in NS 250 ML IVPB (15:15)
[2017-02-26] MEDS: ACETAMINOPHEN 650MG/20.3ML CUP GTB (20:09)
[2017-02-26] MEDS: DOCUSATE SODIUM 10 MG/ML (10ML CUP) GTB (20:09)
[2017-02-27] MEDS: PIPER-TAZO 3.375 GM IV (PMX) 50 ML IVPB ×4 (00:47→20:56)
[2017-02-27 08:03] LABS: ADD MAN DIFF? NO
[2017-02-27 08:09] LABS: BASOPHIL # 0.1 10^3/ul (0.0-0.1); BASOPHILS % 0.3 % (0.0-2.0); EOSINOPHILS % 0.1 % (0.0-7.0); HEMATOCRIT 22.2 % (37.0-47.0); HEMOGLOBIN 7.5 g/dl (12.0-16.0); LYMPHOCYTES # 1.8 10^3/ul (0.8-2.9); LYMPHOCYTES % 10.6 % (15.0-51.0); MEAN CORPUSCULAR HEMOGLOBIN 30.1 pg (29.0-33.0); MEAN CORPUSCULAR HGB CONC 33.8 g/dl (32.0-37.0); MEAN CORPUSCULAR VOLUME 89.2 fl (82.0-101.0); MEAN PLATELET VOLUME 8.6 fl (7.4-10.4); MONOCYTES % 6.1 % (0.0-11.0); NEUTROPHIL # 13.8 10^3/ul (1.6-7.5); NEUTROPHILS % 80.8 % (39.0-77.0); PLATELET COUNT 628 10^3/UL (140-415); RED BLOOD COUNT 2.49 10^6/ul (4.20-5.40)
[2017-02-27 08:31] LABS: ANION GAP 16 (8-16); BLOOD UREA NITROGEN 5 mg/dl (7-20); CALCIUM 8.5 mg/dl (8.4-10.2); CARBON DIOXIDE 19 mmol/L (21-31); CHLORIDE 107 mmol/L (97-110); CREATININE 0.59 mg/dl (0.44-1.00); GLUCOSE 90 mg/dl (70-220); POTASSIUM 3.7 mmol/L (3.5-5.1); SODIUM 138 mmol/L (135-144)
[2017-02-27] MEDS: LIDOCAINE 1% (MDV) 20 ML INJ (09:11)
[2017-02-27] MEDS: PROPOFOL 20 ML ×2 (09:49→09:51)
[2017-02-27] MEDS: MIDAZOLAM 1 MG/ML 2 ML INJ ×2 (09:50→10:19)
[2017-02-27] MEDS: FENTAnyl 50 MCG/ML VIAL (09:50)
[2017-02-27] MEDS: IOHEXOL 300MG/ML 150 ML BTL (10:12)
[2017-02-27] MEDS ORDERED: ALBUTEROL 0.083% (NEB) 2.5 MG/3 ML AMP HHN (11:30)
[2017-02-27] MEDS ORDERED: FENTAnyl 50 MCG/ML VIAL IV ×3 (11:30)
[2017-02-27] MEDS ORDERED: LABETALOL HCL 20MG INJ IV (11:30)
[2017-02-27] MEDS ORDERED: ONDANSETRON 4 MG INJ IV (11:30)
[2017-02-27] MEDS: LANSOPRAZOLE 30 MG CAP GTB (12:55)
[2017-02-27] MEDS: TOPIRAMATE 100 MG TAB GTB ×2 (12:55→20:56)
[2017-02-27] MEDS: DOCUSATE SODIUM 10 MG/ML (10ML CUP) PO ×2 (12:55→20:56)
[2017-02-27] MEDS: ESCITALOPRAM 10 MG TAB GTB (12:56)
[2017-02-27] MEDS: METOPROLOL 25 MG TAB GTB ×2 (12:56→21:04)
[2017-02-27] MEDS: FLUCONAZOLE 100 MG TAB PO (12:56)
[2017-02-27] MEDS: MULTIVITAMINS THERAPEUTIC TAB GTB (12:56)
[2017-02-27] MEDS: PHENYTOIN (25 MG/ML PO SYG) GTB ×3 (12:57→20:56)
[2017-02-27] MEDS: VANCOMYCIN 1 GM in NS 250 ML IVPB ×2 (14:30→16:25)
[2017-02-27] MEDS: ACETAMINOPHEN 325 MG TAB PO (20:54)
[2017-02-28] MEDS: PIPER-TAZO 3.375 GM IV (PMX) 50 ML IVPB ×5 (01:26→23:29)
[2017-02-28] MEDS: VANCOMYCIN 750 MG in DEXTROSE 5% 150 ML IVPB ×2 (05:08→15:40)
[2017-02-28] MEDS: PHENYTOIN (25 MG/ML PO SYG) GTB ×3 (09:08→20:50)
[2017-02-28] MEDS: DOCUSATE SODIUM 10 MG/ML (10ML CUP) PO ×2 (09:08→20:50)
[2017-02-28] MEDS: ESCITALOPRAM 10 MG TAB GTB (09:09)
[2017-02-28] MEDS: FLUCONAZOLE 100 MG TAB PO (09:09)
[2017-02-28] MEDS: TOPIRAMATE 100 MG TAB GTB ×2 (09:09→20:50)
[2017-02-28] MEDS: MULTIVITAMINS THERAPEUTIC TAB GTB (09:09)
[2017-02-28] MEDS: LANSOPRAZOLE 30 MG CAP GTB (09:09)
[2017-02-28] MEDS: METOPROLOL 25 MG TAB GTB ×2 (09:11→20:50)
[2017-02-28] MEDS: ACETAMINOPHEN 650MG/20.3ML CUP GTB ×2 (09:24→15:26)
[2017-02-28 14:07] LABS: ADD MAN DIFF? NO
[2017-02-28 14:08] LABS: ABNORMAL IP MESSAGE 1; BASOPHIL # 0.1 10^3/ul (0.0-0.1); BASOPHILS % 0.2 % (0.0-2.0); HEMATOCRIT 24.7 % (37.0-47.0); HEMOGLOBIN 8.4 g/dl (12.0-16.0); LYMPHOCYTES % 10.4 % (15.0-51.0); MEAN CORPUSCULAR VOLUME 91.1 fl (82.0-101.0); MEAN PLATELET VOLUME 8.9 fl (7.4-10.4); MONOCYTE # 1.5 10^3/ul (0.3-0.9); MONOCYTES % 5.1 % (0.0-11.0); NEUTROPHIL # 23.4 10^3/ul (1.6-7.5); NEUTROPHILS % 82.2 % (39.0-77.0); RED BLOOD COUNT 2.71 10^6/ul (4.20-5.40); RED CELL DISTRIBUTION WIDTH 14.3 % (11.5-14.5)
[2017-02-28 14:08] LABS: WHITE BLOOD COUNT 28.5 10^3/ul (4.8-10.8)
[2017-02-28 14:16] LABS: PLATELET COUNT 699 10^3/UL (140-415)
[2017-02-28 14:25] LABS: ANION GAP 15 (8-16); BLOOD UREA NITROGEN 6 mg/dl (7-20); CALCIUM 8.6 mg/dl (8.4-10.2); CARBON DIOXIDE 19 mmol/L (21-31); CHLORIDE 102 mmol/L (97-110); CREATININE 0.64 mg/dl (0.44-1.00); GLUCOSE 110 mg/dl (70-220); LIPASE 201 U/L (23-300); POTASSIUM 3.6 mmol/L (3.5-5.1); SODIUM 132 mmol/L (135-144)
[2017-02-28 14:40] LABS: ANISOCYTOSIS 1+ (0-0); BAND NEUTROPHILS #M 1.4 10^3/ul (0.0-0.6); BAND NEUTROPHILS % (M) 5 % (0-4); GIANT THROMBO% (M) 1 % (0-0); HYPOCHROMASIA 1+ (0-0); LYMPHOCYTES #M 2.5 10^3/ul (0.8-2.9); LYMPHOCYTES % (M) 9 % (15-51); MONOCYTE #M 0.8 10^3/ul (0.3-0.9); MONOCYTES % (M) 3 % (0-11); PLATELET ESTIMATE NORMAL; POIKILOCYTOSIS 1+ (0-0); POLYCHROMASIA 1+ (0-0); SEG NEUT #M 24.1 10^3/ul (1.7-7.5); SEGMENTED NEUTROPHILS (M) % 83 % (39-77); SMUDGE%M 2 % (0-0)
[2017-02-28] MEDS: ONDANSETRON 4 MG INJ IV (15:21)
[2017-03-01] MEDS: VANCOMYCIN 750 MG in DEXTROSE 5% 150 ML IVPB ×2 (04:32→16:11)
[2017-03-01] MEDS: PIPER-TAZO 3.375 GM IV (PMX) 50 ML IVPB ×4 (06:18→23:56)
[2017-03-01] MEDS: LANSOPRAZOLE 30 MG CAP GTB (11:49)
[2017-03-01] MEDS: FLUCONAZOLE 100 MG TAB PO (11:50)
[2017-03-01] MEDS: TOPIRAMATE 100 MG TAB GTB ×2 (11:50→21:40)
[2017-03-01] MEDS: MULTIVITAMINS THERAPEUTIC TAB GTB (11:50)
[2017-03-01] MEDS: ESCITALOPRAM 10 MG TAB GTB (11:51)
[2017-03-01] MEDS: PHENYTOIN (25 MG/ML PO SYG) GTB ×3 (11:51→21:40)
[2017-03-01] MEDS: METOPROLOL 25 MG TAB GTB ×2 (11:52→21:00)
[2017-03-01] MEDS: DOCUSATE SODIUM 10 MG/ML (10ML CUP) PO ×2 (11:52→21:40)
[2017-03-01 15:13] LABS: ADD MAN DIFF? NO
[2017-03-01 15:16] LABS: ABNORMAL IP MESSAGE 1; BASOPHIL # 0.1 10^3/ul (0.0-0.1); BASOPHILS % 0.3 % (0.0-2.0); HEMATOCRIT 22.2 % (37.0-47.0); HEMOGLOBIN 7.6 g/dl (12.0-16.0); LYMPHOCYTES # 2.7 10^3/ul (0.8-2.9); LYMPHOCYTES % 9.7 % (15.0-51.0); MEAN CORPUSCULAR HEMOGLOBIN 30.8 pg (29.0-33.0); MEAN CORPUSCULAR HGB CONC 34.2 g/dl (32.0-37.0); MEAN CORPUSCULAR VOLUME 89.9 fl (82.0-101.0); MEAN PLATELET VOLUME 8.7 fl (7.4-10.4); MONOCYTE # 1.5 10^3/ul (0.3-0.9); MONOCYTES % 5.3 % (0.0-11.0); NEUTROPHIL # 22.8 10^3/ul (1.6-7.5); NEUTROPHILS % 81.8 % (39.0-77.0); PLATELET COUNT 745 10^3/UL (140-415); RED BLOOD COUNT 2.47 10^6/ul (4.20-5.40); RED CELL DISTRIBUTION WIDTH 14.4 % (11.5-14.5)
[2017-03-01 15:16] LABS: WHITE BLOOD COUNT 27.9 10^3/ul (4.8-10.8)
[2017-03-01 15:39] LABS: ANION GAP 12 (8-16); BLOOD UREA NITROGEN 7 mg/dl (7-20); CALCIUM 8.1 mg/dl (8.4-10.2); CARBON DIOXIDE 22 mmol/L (21-31); CHLORIDE 100 mmol/L (97-110); CREATININE 0.68 mg/dl (0.44-1.00); GLUCOSE 108 mg/dl (70-220); SODIUM 131 mmol/L (135-144)
[2017-03-01 15:52] LABS: VANCOMYCIN,TROUGH 12.2 ug/ml (10.0-20.0)
[2017-03-01 15:55] LABS: POSITIVE DIFF @See below
[2017-03-01 16:15] LABS: POTASSIUM 2.8 mmol/L (3.5-5.1)
[2017-03-01] MEDS: SOD CHLORIDE 0.9% 250 ML IV* (19:11)
[2017-03-01] MEDS: POTASSIUM CHLORIDE 250 ML IVPB ×2 (19:38→23:49)
[2017-03-02] MEDS: VANCOMYCIN 750 MG in DEXTROSE 5% 150 ML IVPB ×2 (03:51→17:00)
[2017-03-02] MEDS: PIPER-TAZO 3.375 GM IV (PMX) 50 ML IVPB ×3 (05:27→18:17)
[2017-03-02] MEDS: LANSOPRAZOLE 30 MG CAP GTB (09:00)
[2017-03-02] MEDS: ESCITALOPRAM 10 MG TAB GTB (09:00)
[2017-03-02] MEDS: DOCUSATE SODIUM 10 MG/ML (10ML CUP) PO ×2 (09:00→21:42)
[2017-03-02] MEDS: METOPROLOL 25 MG TAB GTB ×2 (09:00→21:43)
[2017-03-02] MEDS: TOPIRAMATE 100 MG TAB GTB ×2 (09:00→21:42)
[2017-03-02] MEDS: FLUCONAZOLE 100 MG TAB PO (09:00)
[2017-03-02] MEDS: MULTIVITAMINS THERAPEUTIC TAB GTB (09:00)
[2017-03-02] MEDS: PHENYTOIN (25 MG/ML PO SYG) GTB ×3 (10:11→21:42)
[2017-03-02] MEDS: ACETAMINOPHEN 650MG/20.3ML CUP GTB (10:12)
[2017-03-02] MEDS: DOCUSATE SODIUM 10 MG/ML (10ML CUP) GTB (10:23)
[2017-03-02 16:18] LABS: ADD MAN DIFF? NO
[2017-03-02 16:19] LABS: BASOPHIL # 0.1 10^3/ul (0.0-0.1); BASOPHILS % 0.2 % (0.0-2.0); EOSINOPHILS % 0.1 % (0.0-7.0); HEMATOCRIT 23.6 % (37.0-47.0); HEMOGLOBIN 7.6 g/dl (12.0-16.0); LYMPHOCYTES # 2.2 10^3/ul (0.8-2.9); LYMPHOCYTES % 9.7 % (15.0-51.0); MEAN CORPUSCULAR HEMOGLOBIN 29.5 pg (29.0-33.0); MEAN CORPUSCULAR HGB CONC 32.2 g/dl (32.0-37.0); MEAN CORPUSCULAR VOLUME 91.5 fl (82.0-101.0); MEAN PLATELET VOLUME 8.6 fl (7.4-10.4); MONOCYTE # 1.1 10^3/ul (0.3-0.9); MONOCYTES % 4.8 % (0.0-11.0); NEUTROPHIL # 18.9 10^3/ul (1.6-7.5); PLATELET COUNT 781 10^3/UL (140-415); RED BLOOD COUNT 2.58 10^6/ul (4.20-5.40); RED CELL DISTRIBUTION WIDTH 14.7 % (11.5-14.5)
[2017-03-02 16:42] LABS: ANION GAP 14 (8-16); BLOOD UREA NITROGEN 7 mg/dl (7-20); CALCIUM 8.3 mg/dl (8.4-10.2); CARBON DIOXIDE 19 mmol/L (21-31); CHLORIDE 107 mmol/L (97-110); CREATININE 0.68 mg/dl (0.44-1.00); GLUCOSE 110 mg/dl (70-220); POTASSIUM 3.2 mmol/L (3.5-5.1); SODIUM 137 mmol/L (135-144)
[2017-03-03] MEDS: PIPER-TAZO 3.375 GM IV (PMX) 50 ML IVPB ×4 (01:49→18:37)
[2017-03-03] MEDS: VANCOMYCIN 750 MG in DEXTROSE 5% 150 ML IVPB ×2 (04:39→16:00)
[2017-03-03 06:45] LABS: ADD MAN DIFF? NO
[2017-03-03 06:58] LABS: WHITE BLOOD COUNT 20.4 10^3/ul (4.8-10.8)
[2017-03-03 06:58] LABS: ABNORMAL IP MESSAGE 1; BASOPHIL # 0.1 10^3/ul (0.0-0.1); BASOPHILS % 0.3 % (0.0-2.0); EOSINOPHILS % 0.2 % (0.0-7.0); HEMATOCRIT 19.9 % (37.0-47.0); LYMPHOCYTES # 2.1 10^3/ul (0.8-2.9); LYMPHOCYTES % 10.4 % (15.0-51.0); MEAN CORPUSCULAR HEMOGLOBIN 30.6 pg (29.0-33.0); MEAN CORPUSCULAR HGB CONC 34.2 g/dl (32.0-37.0); MEAN CORPUSCULAR VOLUME 89.6 fl (82.0-101.0); MEAN PLATELET VOLUME 9.1 fl (7.4-10.4); MONOCYTES % 4.8 % (0.0-11.0); NEUTROPHIL # 16.6 10^3/ul (1.6-7.5); NEUTROPHILS % 81.3 % (39.0-77.0); PLATELET COUNT 708 10^3/UL (140-415); RED BLOOD COUNT 2.22 10^6/ul (4.20-5.40); RED CELL DISTRIBUTION WIDTH 14.7 % (11.5-14.5)
[2017-03-03 07:05] LABS: HEMOGLOBIN 6.8 g/dl (12.0-16.0); POSITIVE DIFF @See below
[2017-03-03 07:25] LABS: ANION GAP 15 (8-16); BLOOD UREA NITROGEN 6 mg/dl (7-20); CALCIUM 8.1 mg/dl (8.4-10.2); CARBON DIOXIDE 17 mmol/L (21-31); CHLORIDE 105 mmol/L (97-110); CREATININE 0.59 mg/dl (0.44-1.00); GLUCOSE 120 mg/dl (70-220); SODIUM 134 mmol/L (135-144)
[2017-03-03 07:38] LABS: POTASSIUM 2.8 mmol/L (3.5-5.1)
[2017-03-03] MEDS: ESCITALOPRAM 10 MG TAB GTB (09:00)
[2017-03-03] MEDS: METOPROLOL 25 MG TAB GTB ×2 (09:00→22:15)
[2017-03-03] MEDS: TOPIRAMATE 100 MG TAB GTB ×2 (09:00→22:15)
[2017-03-03] MEDS: PHENYTOIN (25 MG/ML PO SYG) GTB ×3 (09:01→22:13)
[2017-03-03] MEDS: LANSOPRAZOLE 30 MG CAP GTB (09:01)
[2017-03-03] MEDS: MULTIVITAMINS THERAPEUTIC TAB GTB (09:01)
[2017-03-03] MEDS: FLUCONAZOLE 100 MG TAB PO (09:01)
[2017-03-03] MEDS: DOCUSATE SODIUM 10 MG/ML (10ML CUP) PO ×2 (09:22→22:13)
[2017-03-03] MEDS ORDERED: IOHEXOL 300MG/ML 30 ML BTL (12:46)
[2017-03-03] MEDS: POTASSIUM CHLORIDE 250 ML IVPB (20:07)
[2017-03-04] MEDS: PIPER-TAZO 3.375 GM IV (PMX) 50 ML IVPB ×5 (00:35→19:25)
[2017-03-04] MEDS: ACETAMINOPHEN 650MG/20.3ML CUP GTB ×2 (01:42→18:28)
[2017-03-04] MEDS: POTASSIUM CHLORIDE 250 ML IVPB (01:47)
[2017-03-04] MEDS: VANCOMYCIN 750 MG in DEXTROSE 5% 150 ML IVPB ×2 (05:01→16:20)
[2017-03-04] MEDS: DOCUSATE SODIUM 10 MG/ML (10ML CUP) PO ×2 (08:55→20:43)
[2017-03-04] MEDS: LANSOPRAZOLE 30 MG CAP GTB (08:56)
[2017-03-04] MEDS: PHENYTOIN (25 MG/ML PO SYG) GTB ×3 (08:56→20:43)
[2017-03-04] MEDS: METOPROLOL 25 MG TAB GTB ×2 (08:57→20:44)
[2017-03-04] MEDS: ESCITALOPRAM 10 MG TAB GTB (08:57)
[2017-03-04] MEDS: FLUCONAZOLE 100 MG TAB PO (08:58)
[2017-03-04] MEDS: ACETAMINOPHEN 325 MG TAB PO (08:58)
[2017-03-04] MEDS: TOPIRAMATE 100 MG TAB GTB ×2 (08:58→20:44)
[2017-03-04] MEDS: MULTIVITAMINS THERAPEUTIC TAB GTB (08:58)
[2017-03-04 11:56] LABS: IMMEDIATE SPIN CROSSMATCH 1 4
[2017-03-04] MEDS: SOD CHLORIDE 0.9% 250 ML IV* (12:08)
[2017-03-04] MEDS: LORAZEPAM 1 MG TAB GTB (12:49)
[2017-03-04 15:51] LABS: ADD MAN DIFF? NO
[2017-03-04 15:52] LABS: BASOPHIL # 0.1 10^3/ul (0.0-0.1); BASOPHILS % 0.2 % (0.0-2.0); EOSINOPHILS % 0.1 % (0.0-7.0); HEMATOCRIT 24.1 % (37.0-47.0); HEMOGLOBIN 8.1 g/dl (12.0-16.0); LYMPHOCYTES # 2.5 10^3/ul (0.8-2.9); LYMPHOCYTES % 12.2 % (15.0-51.0); MEAN CORPUSCULAR HEMOGLOBIN 30.2 pg (29.0-33.0); MEAN CORPUSCULAR HGB CONC 33.6 g/dl (32.0-37.0); MEAN CORPUSCULAR VOLUME 89.9 fl (82.0-101.0); MEAN PLATELET VOLUME 10.4 fl (7.4-10.4); MONOCYTE # 1.3 10^3/ul (0.3-0.9); MONOCYTES % 6.1 % (0.0-11.0); NEUTROPHIL # 16.5 10^3/ul (1.6-7.5); NEUTROPHILS % 79.6 % (39.0-77.0); PLATELET COUNT 620 10^3/UL (140-415); RED BLOOD COUNT 2.68 10^6/ul (4.20-5.40); RED CELL DISTRIBUTION WIDTH 15.4 % (11.5-14.5)
[2017-03-04 15:52] LABS: WHITE BLOOD COUNT 20.7 10^3/ul (4.8-10.8)
[2017-03-04 16:42] LABS: ANION GAP 14 (8-16); BLOOD UREA NITROGEN 6 mg/dl (7-20); CALCIUM 8.4 mg/dl (8.4-10.2); CARBON DIOXIDE 17 mmol/L (21-31); CHLORIDE 107 mmol/L (97-110); CREATININE 0.59 mg/dl (0.44-1.00); GLUCOSE 99 mg/dl (70-220); MAGNESIUM 2.1 mg/dl (1.7-2.5); PHOSPHORUS 3.2 mg/dl (2.5-4.9); POTASSIUM 4.3 mmol/L (3.5-5.1); SODIUM 134 mmol/L (135-144)
[2017-03-05] MEDS: PIPER-TAZO 3.375 GM IV (PMX) 50 ML IVPB ×5 (00:44→23:31)
[2017-03-05] MEDS: VANCOMYCIN 750 MG in DEXTROSE 5% 150 ML IVPB ×2 (04:22→15:57)
[2017-03-05 05:07] LABS: ADD MAN DIFF? NO
[2017-03-05 05:12] LABS: BASOPHIL # 0.1 10^3/ul (0.0-0.1); BASOPHILS % 0.3 % (0.0-2.0); EOSINOPHILS % 0.1 % (0.0-7.0); HEMATOCRIT 24.1 % (37.0-47.0); HEMOGLOBIN 8.3 g/dl (12.0-16.0); LYMPHOCYTES # 2.3 10^3/ul (0.8-2.9); LYMPHOCYTES % 10.1 % (15.0-51.0); MEAN CORPUSCULAR HEMOGLOBIN 30.3 pg (29.0-33.0); MEAN CORPUSCULAR HGB CONC 34.4 g/dl (32.0-37.0); MEAN PLATELET VOLUME 8.5 fl (7.4-10.4); MONOCYTE # 1.3 10^3/ul (0.3-0.9); MONOCYTES % 5.5 % (0.0-11.0); NEUTROPHIL # 18.6 10^3/ul (1.6-7.5); NEUTROPHILS % 81.6 % (39.0-77.0); PLATELET COUNT 675 10^3/UL (140-415); RED BLOOD COUNT 2.74 10^6/ul (4.20-5.40); RED CELL DISTRIBUTION WIDTH 14.8 % (11.5-14.5)
[2017-03-05 05:12] LABS: WHITE BLOOD COUNT 22.8 10^3/ul (4.8-10.8)
[2017-03-05 05:36] LABS: ANION GAP 15 (8-16); BLOOD UREA NITROGEN 5 mg/dl (7-20); CALCIUM 8.1 mg/dl (8.4-10.2); CARBON DIOXIDE 17 mmol/L (21-31); CHLORIDE 106 mmol/L (97-110); CREATININE 0.59 mg/dl (0.44-1.00); GLUCOSE 104 mg/dl (70-220); POTASSIUM 3.5 mmol/L (3.5-5.1); SODIUM 134 mmol/L (135-144)
[2017-03-05] MEDS: MULTIVITAMINS THERAPEUTIC TAB GTB (09:33)
[2017-03-05] MEDS: ACETAMINOPHEN 650MG/20.3ML CUP GTB (09:33)
[2017-03-05] MEDS: TOPIRAMATE 100 MG TAB GTB ×2 (09:33→21:48)
[2017-03-05] MEDS: FLUCONAZOLE 100 MG TAB PO (09:33)
[2017-03-05] MEDS: DOCUSATE SODIUM 10 MG/ML (10ML CUP) PO ×2 (09:33→21:48)
[2017-03-05] MEDS: PHENYTOIN (25 MG/ML PO SYG) GTB ×3 (09:33→22:38)
[2017-03-05] MEDS: LANSOPRAZOLE 30 MG CAP GTB (09:33)
[2017-03-05] MEDS: ESCITALOPRAM 10 MG TAB GTB (09:34)
[2017-03-05] MEDS: METOPROLOL 25 MG TAB GTB ×2 (09:34→21:49)
[2017-03-05] MEDS: BARIUM SULF 2% 450 ML BTL (BERRY SMOOTHIE) PO (12:30)
[2017-03-05] MEDS: SOD CHLORIDE 0.9% 100 ML (12:52)
[2017-03-05] MEDS: IODIXANOL LOCM 100 ML BTL (12:53)
[2017-03-06 03:43] LABS: ADD MAN DIFF? NO
[2017-03-06 04:03] LABS: ANION GAP 13 (8-16); BLOOD UREA NITROGEN 8 mg/dl (7-20); CALCIUM 8.5 mg/dl (8.4-10.2); CARBON DIOXIDE 21 mmol/L (21-31); CHLORIDE 106 mmol/L (97-110); CREATININE 0.74 mg/dl (0.44-1.00); GLUCOSE 110 mg/dl (70-220); SODIUM 136 mmol/L (135-144)
[2017-03-06 04:09] LABS: WHITE BLOOD COUNT 23.1 10^3/ul (4.8-10.8)
[2017-03-06 04:09] LABS: BASOPHIL # 0.1 10^3/ul (0.0-0.1); BASOPHILS % 0.3 % (0.0-2.0); EOSINOPHILS % 0.1 % (0.0-7.0); HEMATOCRIT 25.2 % (37.0-47.0); HEMOGLOBIN 8.5 g/dl (12.0-16.0); LYMPHOCYTES # 2.5 10^3/ul (0.8-2.9); LYMPHOCYTES % 10.7 % (15.0-51.0); MEAN CORPUSCULAR HEMOGLOBIN 30.5 pg (29.0-33.0); MEAN CORPUSCULAR HGB CONC 33.7 g/dl (32.0-37.0); MEAN CORPUSCULAR VOLUME 90.3 fl (82.0-101.0); MEAN PLATELET VOLUME 8.3 fl (7.4-10.4); MONOCYTE # 1.5 10^3/ul (0.3-0.9); MONOCYTES % 6.4 % (0.0-11.0); NEUTROPHIL # 18.5 10^3/ul (1.6-7.5); NEUTROPHILS % 79.9 % (39.0-77.0); RED BLOOD COUNT 2.79 10^6/ul (4.20-5.40); RED CELL DISTRIBUTION WIDTH 14.9 % (11.5-14.5)
[2017-03-06 04:14] LABS: PLATELET COUNT 735 10^3/UL (140-415)
[2017-03-06 04:19] LABS: VANCOMYCIN,TROUGH 13.6 ug/ml (10.0-20.0)
[2017-03-06] MEDS: VANCOMYCIN 750 MG in DEXTROSE 5% 150 ML IVPB ×2 (04:53→15:30)
[2017-03-06] MEDS: PIPER-TAZO 3.375 GM IV (PMX) 50 ML IVPB ×4 (06:03→23:58)
[2017-03-06] MEDS: MULTIVITAMINS THERAPEUTIC TAB GTB (10:02)
[2017-03-06] MEDS: DOCUSATE SODIUM 10 MG/ML (10ML CUP) PO ×2 (10:02→20:46)
[2017-03-06] MEDS: ESCITALOPRAM 10 MG TAB GTB (10:02)
[2017-03-06] MEDS: LANSOPRAZOLE 30 MG CAP GTB (10:03)
[2017-03-06] MEDS: TOPIRAMATE 100 MG TAB GTB ×2 (10:03→20:47)
[2017-03-06] MEDS: FLUCONAZOLE 100 MG TAB PO (10:03)
[2017-03-06] MEDS: METOPROLOL 25 MG TAB GTB ×2 (11:31→20:48)
[2017-03-06] MEDS: PHENYTOIN (100 MG/4 ML) CUP GTB ×2 (11:31→20:55)
[2017-03-06] MEDS: ACETAMINOPHEN 650MG/20.3ML CUP GTB (15:30)
[2017-03-06] MEDS: ACETAMINOPHEN 325 MG TAB PO (20:47)
[2017-03-07] MEDS: VANCOMYCIN 750 MG in DEXTROSE 5% 150 ML IVPB ×2 (04:30→16:01)
[2017-03-07 05:47] LABS: ADD MAN DIFF? NO
[2017-03-07 05:51] LABS: BASOPHIL # 0.1 10^3/ul (0.0-0.1); BASOPHILS % 0.3 % (0.0-2.0); EOSINOPHILS % 0.1 % (0.0-7.0); HEMATOCRIT 22.7 % (37.0-47.0); HEMOGLOBIN 7.7 g/dl (12.0-16.0); LYMPHOCYTES # 2.2 10^3/ul (0.8-2.9); MEAN CORPUSCULAR HEMOGLOBIN 30.1 pg (29.0-33.0); MEAN CORPUSCULAR HGB CONC 33.9 g/dl (32.0-37.0); MEAN CORPUSCULAR VOLUME 88.7 fl (82.0-101.0); MEAN PLATELET VOLUME 8.3 fl (7.4-10.4); MONOCYTE # 1.3 10^3/ul (0.3-0.9); MONOCYTES % 5.4 % (0.0-11.0); NEUTROPHIL # 19.8 10^3/ul (1.6-7.5); NEUTROPHILS % 83.2 % (39.0-77.0); PLATELET COUNT 672 10^3/UL (140-415); RED BLOOD COUNT 2.56 10^6/ul (4.20-5.40); RED CELL DISTRIBUTION WIDTH 14.9 % (11.5-14.5)
[2017-03-07 05:51] LABS: WHITE BLOOD COUNT 23.8 10^3/ul (4.8-10.8)
[2017-03-07] MEDS: PIPER-TAZO 3.375 GM IV (PMX) 50 ML IVPB ×3 (06:11→18:17)
[2017-03-07 06:26] LABS: ANION GAP 17 (8-16); BLOOD UREA NITROGEN 7 mg/dl (7-20); CALCIUM 7.9 mg/dl (8.4-10.2); CARBON DIOXIDE 16 mmol/L (21-31); CHLORIDE 104 mmol/L (97-110); CREATININE 0.62 mg/dl (0.44-1.00); GLUCOSE 110 mg/dl (70-220); SODIUM 134 mmol/L (135-144)
[2017-03-07] MEDS: METOPROLOL 25 MG TAB GTB ×2 (09:00→21:00)
[2017-03-07] MEDS: PHENYTOIN (100 MG/4 ML) CUP GTB ×3 (09:07→21:48)
[2017-03-07] MEDS: FLUCONAZOLE 100 MG TAB PO (09:32)
[2017-03-07] MEDS: DOCUSATE SODIUM 10 MG/ML (10ML CUP) PO ×2 (09:32→21:48)
[2017-03-07] MEDS: MULTIVITAMINS THERAPEUTIC TAB GTB (09:32)
[2017-03-07] MEDS: ESCITALOPRAM 10 MG TAB GTB (09:32)
[2017-03-07] MEDS: LANSOPRAZOLE 30 MG CAP GTB (09:32)
[2017-03-07] MEDS: TOPIRAMATE 100 MG TAB GTB ×2 (09:38→21:48)
[2017-03-07] MEDS: POTASSIUM CHLORIDE (SR) 20 MEQ TAB PO ×2 (12:05→12:07)
[2017-03-07] MEDS: POTASSIUM CHLORIDE 20 MEQ POWDER FOR ORAL SOLN GTB (12:07)
[2017-03-07] MEDS: ONDANSETRON 4 MG INJ IV (12:56)
[2017-03-08] MEDS: PIPER-TAZO 3.375 GM IV (PMX) 50 ML IVPB ×4 (00:33→19:24)
[2017-03-08] MEDS: VANCOMYCIN 750 MG in DEXTROSE 5% 150 ML IVPB ×2 (04:34→17:35)
[2017-03-08] MEDS: TOPIRAMATE 100 MG TAB GTB ×2 (09:00→21:58)
[2017-03-08] MEDS: FLUCONAZOLE 100 MG TAB PO (09:00)
[2017-03-08] MEDS: PHENYTOIN (100 MG/4 ML) CUP GTB ×3 (09:00→21:59)
[2017-03-08] MEDS: LANSOPRAZOLE 30 MG CAP GTB ×2 (09:00→13:26)
[2017-03-08] MEDS: MULTIVITAMINS THERAPEUTIC TAB GTB ×2 (09:00→13:27)
[2017-03-08] MEDS: ESCITALOPRAM 10 MG TAB GTB ×2 (09:00→13:28)
[2017-03-08] MEDS: METOPROLOL 25 MG TAB GTB ×2 (09:00→21:00)
[2017-03-08] MEDS: DOCUSATE SODIUM 10 MG/ML (10ML CUP) PO ×2 (09:00→21:58)
[2017-03-08] MEDS: EPHEDrine SULFATE 50 MG/5 ML SYG (11:15)
[2017-03-08] MEDS: PROPOFOL 20 ML (11:15)
[2017-03-08] MEDS: PHENYLephrine (100 MCG/ML) 5ML SYG (11:15)
[2017-03-08] MEDS: FENTAnyl 50 MCG/ML VIAL (11:15)
[2017-03-08] MEDS: MIDAZOLAM 1 MG/ML 2 ML INJ (11:16)
[2017-03-08] MEDS: GLYCOPYRROLATE 0.4 MG INJ (11:16)
[2017-03-08] MEDS: LIDOCAINE 1% (MDV) 20 ML INJ (11:22)
[2017-03-08] MEDS ORDERED: EPHEDrine SULFATE 50 MG/5 ML SYG IV (12:30)
[2017-03-08] MEDS ORDERED: METOCLOPRAMIDE 10 MG INJ IV (12:30)
[2017-03-08] MEDS ORDERED: FENTAnyl 50 MCG/ML VIAL IV ×3 (12:30)
[2017-03-08] MEDS ORDERED: TRIMETHOBENZAMIDE 100 MG/ML VIAL IM (12:30)
[2017-03-08] MEDS ORDERED: hydrALAzine 20 MG INJ IV (12:30)
[2017-03-08 15:22] LABS: ADD MAN DIFF? NO
[2017-03-08 15:26] LABS: BASOPHIL # 0.1 10^3/ul (0.0-0.1); BASOPHILS % 0.4 % (0.0-2.0); EOSINOPHILS % 0.1 % (0.0-7.0); HEMOGLOBIN 8.9 g/dl (12.0-16.0); LYMPHOCYTES % 9.4 % (15.0-51.0); MEAN CORPUSCULAR HEMOGLOBIN 30.1 pg (29.0-33.0); MEAN CORPUSCULAR VOLUME 91.2 fl (82.0-101.0); MEAN PLATELET VOLUME 8.2 fl (7.4-10.4); MONOCYTE # 1.3 10^3/ul (0.3-0.9); MONOCYTES % 5.9 % (0.0-11.0); NEUTROPHIL # 17.4 10^3/ul (1.6-7.5); NEUTROPHILS % 82.7 % (39.0-77.0); PLATELET COUNT 700 10^3/UL (140-415); RED BLOOD COUNT 2.96 10^6/ul (4.20-5.40); RED CELL DISTRIBUTION WIDTH 14.7 % (11.5-14.5)
[2017-03-08 15:26] LABS: WHITE BLOOD COUNT 21.1 10^3/ul (4.8-10.8)
[2017-03-08 15:50] LABS: ANION GAP 20 (8-16); BLOOD UREA NITROGEN 7 mg/dl (7-20); CALCIUM 8.5 mg/dl (8.4-10.2); CARBON DIOXIDE 17 mmol/L (21-31); CHLORIDE 103 mmol/L (97-110); CREATININE 0.53 mg/dl (0.44-1.00); GLUCOSE 88 mg/dl (70-220); SODIUM 136 mmol/L (135-144)
[2017-03-09] MEDS: PIPER-TAZO 3.375 GM IV (PMX) 50 ML IVPB ×5 (00:09→23:20)
[2017-03-09] MEDS: VANCOMYCIN 750 MG in DEXTROSE 5% 150 ML IVPB ×2 (04:07→16:13)
[2017-03-09] MEDS: ESCITALOPRAM 10 MG TAB GTB ×2 (09:00→12:35)
[2017-03-09] MEDS: FLUCONAZOLE 100 MG TAB PO ×2 (09:00→12:36)
[2017-03-09] MEDS: LANSOPRAZOLE 30 MG CAP GTB ×2 (09:00→12:36)
[2017-03-09] MEDS: PHENYTOIN (100 MG/4 ML) CUP GTB ×3 (09:00→20:27)
[2017-03-09] MEDS: TOPIRAMATE 100 MG TAB GTB ×3 (09:00→20:28)
[2017-03-09] MEDS: DOCUSATE SODIUM 10 MG/ML (10ML CUP) PO ×3 (09:00→20:27)
[2017-03-09] MEDS: MULTIVITAMINS THERAPEUTIC TAB GTB ×2 (09:00→12:37)
[2017-03-09] MEDS: METOPROLOL 25 MG TAB GTB ×3 (09:00→20:29)
[2017-03-09] MEDS: ASPIRIN 325 MG TAB PO (13:30)
[2017-03-09] MEDS: ACETAMINOPHEN 650MG/20.3ML CUP GTB ×2 (13:32→20:27)
[2017-03-10] MEDS: ACETAMINOPHEN 650MG/20.3ML CUP GTB ×2 (03:14→09:04)
[2017-03-10] MEDS: VANCOMYCIN 750 MG in DEXTROSE 5% 150 ML IVPB (04:16)
[2017-03-10] MEDS: PIPER-TAZO 3.375 GM IV (PMX) 50 ML IVPB ×2 (06:06→12:16)
[2017-03-10] MEDS: LANSOPRAZOLE 30 MG CAP GTB ×2 (08:43→09:10)
[2017-03-10] MEDS: ASPIRIN 325 MG TAB PO ×2 (08:43→09:10)
[2017-03-10] MEDS: MULTIVITAMINS THERAPEUTIC TAB GTB ×2 (08:43→09:09)
[2017-03-10] MEDS: METOPROLOL 25 MG TAB GTB ×3 (08:43→21:33)
[2017-03-10] MEDS: ESCITALOPRAM 10 MG TAB GTB ×2 (08:43→09:09)
[2017-03-10] MEDS: PHENYTOIN (100 MG/4 ML) CUP GTB ×5 (08:43→21:32)
[2017-03-10] MEDS: TOPIRAMATE 100 MG TAB GTB ×3 (08:43→21:33)
[2017-03-10] MEDS: DOCUSATE SODIUM 10 MG/ML (10ML CUP) PO ×3 (08:44→21:33)
[2017-03-10] MEDS: FLUCONAZOLE 100 MG TAB PO ×2 (08:44→09:09)
[2017-03-10] MEDS: ONDANSETRON 4 MG INJ IV (09:21)
[2017-03-10 13:37] LABS: ADD MAN DIFF? NO
[2017-03-10 13:39] LABS: BASOPHILS % 0.3 % (0.0-2.0); EOSINOPHILS % 0.3 % (0.0-7.0); HEMATOCRIT 23.2 % (37.0-47.0); HEMOGLOBIN 7.7 g/dl (12.0-16.0); LYMPHOCYTES # 1.3 10^3/ul (0.8-2.9); LYMPHOCYTES % 8.4 % (15.0-51.0); MEAN CORPUSCULAR HGB CONC 33.2 g/dl (32.0-37.0); MEAN CORPUSCULAR VOLUME 90.3 fl (82.0-101.0); MEAN PLATELET VOLUME 8.5 fl (7.4-10.4); MONOCYTES % 6.1 % (0.0-11.0); NEUTROPHILS % 83.2 % (39.0-77.0); RED BLOOD COUNT 2.57 10^6/ul (4.20-5.40); RED CELL DISTRIBUTION WIDTH 14.6 % (11.5-14.5)
[2017-03-10 13:39] LABS: WHITE BLOOD COUNT 15.6 10^3/ul (4.8-10.8)
[2017-03-10 13:49] LABS: PLATELET COUNT 624 10^3/UL (140-415)
[2017-03-10 13:56] LABS: ANION GAP 18 (8-16); BLOOD UREA NITROGEN 7 mg/dl (7-20); CALCIUM 8.1 mg/dl (8.4-10.2); CARBON DIOXIDE 17 mmol/L (21-31); CHLORIDE 102 mmol/L (97-110); CREATININE 0.62 mg/dl (0.44-1.00); GLUCOSE 133 mg/dl (70-220); SODIUM 134 mmol/L (135-144)
[2017-03-10] MEDS ORDERED: AMIKACIN IV PER PHARMACY XX (14:00)
[2017-03-10] MEDS: metroNIDAZOLE 500 MG/NS (PMX) 100 ML IVPB ×2 (14:39→22:18)
[2017-03-10] MEDS: DEXTROSE 5% IVPB (16:29)
[2017-03-10] MEDS: AMIKACIN IVPB (16:29)
[2017-03-10] MEDS: LINEZOLID 600 MG/D5W (PMX) 300 ML IVPB (21:36)
[2017-03-11] MEDS: metroNIDAZOLE 500 MG/NS (PMX) 100 ML IVPB ×3 (05:24→21:53)
[2017-03-11] MEDS: DOCUSATE SODIUM 10 MG/ML (10ML CUP) PO ×2 (10:06→20:29)
[2017-03-11] MEDS: PHENYTOIN (100 MG/4 ML) CUP GTB ×3 (10:06→20:29)
[2017-03-11] MEDS: ESCITALOPRAM 10 MG TAB GTB (10:10)
[2017-03-11] MEDS: MULTIVITAMINS THERAPEUTIC TAB GTB (10:10)
[2017-03-11] MEDS: ASPIRIN 325 MG TAB PO (10:10)
[2017-03-11] MEDS: LANSOPRAZOLE 30 MG CAP GTB (10:10)
[2017-03-11] MEDS: FLUCONAZOLE 100 MG TAB PO (10:11)
[2017-03-11] MEDS: METOPROLOL 25 MG TAB GTB ×2 (10:11→20:30)
[2017-03-11] MEDS: TOPIRAMATE 100 MG TAB GTB ×2 (10:12→20:30)
[2017-03-11] MEDS: LINEZOLID 600 MG/D5W (PMX) 300 ML IVPB ×2 (10:20→20:29)
[2017-03-11] MEDS: POTASSIUM CHLORIDE (SR) 20 MEQ TAB PO (14:37)
[2017-03-11] MEDS: AMIKACIN IVPB (16:46)
[2017-03-11] MEDS: DEXTROSE 5% IVPB (16:46)
[2017-03-12] MEDS: metroNIDAZOLE 500 MG/NS (PMX) 100 ML IVPB ×3 (05:18→22:20)
[2017-03-12] MEDS: DOCUSATE SODIUM 10 MG/ML (10ML CUP) PO ×2 (09:18→20:26)
[2017-03-12] MEDS: MULTIVITAMINS THERAPEUTIC TAB GTB (09:18)
[2017-03-12] MEDS: PHENYTOIN (100 MG/4 ML) CUP GTB ×3 (09:18→20:26)
[2017-03-12] MEDS: ESCITALOPRAM 10 MG TAB GTB (09:18)
[2017-03-12] MEDS: TOPIRAMATE 100 MG TAB GTB ×2 (09:19→20:25)
[2017-03-12] MEDS: METOPROLOL 25 MG TAB GTB ×2 (09:19→20:26)
[2017-03-12] MEDS: FLUCONAZOLE 100 MG TAB PO (09:20)
[2017-03-12] MEDS: ASPIRIN 325 MG TAB PO (09:20)
[2017-03-12] MEDS: LANSOPRAZOLE 30 MG CAP GTB (09:20)
[2017-03-12] MEDS: LINEZOLID 600 MG/D5W (PMX) 300 ML IVPB ×2 (09:26→20:25)
[2017-03-12 12:30] LABS: ANION GAP 18 (8-16); BLOOD UREA NITROGEN 6 mg/dl (7-20); CARBON DIOXIDE 17 mmol/L (21-31); CHLORIDE 102 mmol/L (97-110); CREATININE 0.59 mg/dl (0.44-1.00); GLUCOSE 110 mg/dl (70-220); POTASSIUM 3.3 mmol/L (3.5-5.1); SODIUM 134 mmol/L (135-144)
[2017-03-12] MEDS: AMIKACIN IVPB (16:55)
[2017-03-12] MEDS: DEXTROSE 5% IVPB (16:55)
[2017-03-12] MEDS: POTASSIUM CHLORIDE 20 MEQ POWDER FOR ORAL SOLN GTB (18:33)
[2017-03-13] MEDS: metroNIDAZOLE 500 MG/NS (PMX) 100 ML IVPB ×3 (06:01→22:37)
[2017-03-13] MEDS: LINEZOLID 600 MG/D5W (PMX) 300 ML IVPB ×2 (09:49→20:38)
[2017-03-13] MEDS: FLUCONAZOLE 100 MG TAB PO (09:50)
[2017-03-13] MEDS: PHENYTOIN (100 MG/4 ML) CUP GTB ×3 (09:50→20:39)
[2017-03-13] MEDS: ESCITALOPRAM 10 MG TAB GTB (09:50)
[2017-03-13] MEDS: TOPIRAMATE 100 MG TAB GTB ×2 (09:50→20:40)
[2017-03-13] MEDS: ASPIRIN 325 MG TAB PO (09:51)
[2017-03-13] MEDS: LANSOPRAZOLE 30 MG CAP GTB (09:51)
[2017-03-13] MEDS: MULTIVITAMINS THERAPEUTIC TAB GTB (09:51)
[2017-03-13] MEDS: DOCUSATE SODIUM 10 MG/ML (10ML CUP) PO ×2 (09:51→20:39)
[2017-03-13] MEDS: METOPROLOL 25 MG TAB GTB ×2 (09:53→20:40)
[2017-03-13 15:33] LABS: ADD MAN DIFF? NO
[2017-03-13 15:39] LABS: BASOPHIL # 0.1 10^3/ul (0.0-0.1); BASOPHILS % 0.3 % (0.0-2.0); EOSINOPHILS % 0.2 % (0.0-7.0); HEMATOCRIT 25.8 % (37.0-47.0); HEMOGLOBIN 8.2 g/dl (12.0-16.0); LYMPHOCYTES # 2.6 10^3/ul (0.8-2.9); LYMPHOCYTES % 15.9 % (15.0-51.0); MEAN CORPUSCULAR HEMOGLOBIN 29.5 pg (29.0-33.0); MEAN CORPUSCULAR HGB CONC 31.8 g/dl (32.0-37.0); MEAN CORPUSCULAR VOLUME 92.8 fl (82.0-101.0); MEAN PLATELET VOLUME 8.8 fl (7.4-10.4); MONOCYTE # 0.9 10^3/ul (0.3-0.9); MONOCYTES % 5.7 % (0.0-11.0); NEUTROPHIL # 12.1 10^3/ul (1.6-7.5); NEUTROPHILS % 75.5 % (39.0-77.0); PLATELET COUNT 776 10^3/UL (140-415); RED BLOOD COUNT 2.78 10^6/ul (4.20-5.40); RED CELL DISTRIBUTION WIDTH 15.2 % (11.5-14.5)
[2017-03-13 16:00] LABS: MAGNESIUM 1.9 mg/dl (1.7-2.5)
[2017-03-13 16:00] LABS: ANION GAP 15 (8-16); BLOOD UREA NITROGEN 5 mg/dl (7-20); CALCIUM 8.4 mg/dl (8.4-10.2); CARBON DIOXIDE 17 mmol/L (21-31); CHLORIDE 103 mmol/L (97-110); CREATININE 0.56 mg/dl (0.44-1.00); GLUCOSE 108 mg/dl (70-220); POTASSIUM 3.3 mmol/L (3.5-5.1); SODIUM 132 mmol/L (135-144)
[2017-03-13] MEDS: AMIKACIN IVPB (16:10)
[2017-03-13] MEDS: DEXTROSE 5% IVPB (16:10)
[2017-03-14] MEDS: metroNIDAZOLE 500 MG/NS (PMX) 100 ML IVPB ×3 (05:28→22:14)
[2017-03-14] MEDS: ASPIRIN 325 MG TAB PO (09:33)
[2017-03-14] MEDS: PHENYTOIN (100 MG/4 ML) CUP GTB ×3 (09:33→20:44)
[2017-03-14] MEDS: DOCUSATE SODIUM 10 MG/ML (10ML CUP) PO ×2 (09:33→20:44)
[2017-03-14] MEDS: LANSOPRAZOLE 30 MG CAP GTB (09:34)
[2017-03-14] MEDS: FLUCONAZOLE 100 MG TAB PO (09:34)
[2017-03-14] MEDS: MULTIVITAMINS THERAPEUTIC TAB GTB (09:34)
[2017-03-14] MEDS: ESCITALOPRAM 10 MG TAB GTB (09:34)
[2017-03-14] MEDS: TOPIRAMATE 100 MG TAB GTB ×2 (09:34→20:44)
[2017-03-14] MEDS: LINEZOLID 600 MG/D5W (PMX) 300 ML IVPB ×2 (09:35→20:09)
[2017-03-14] MEDS: METOPROLOL 25 MG TAB GTB ×2 (09:35→20:45)
[2017-03-14 13:45] LABS: ADD MAN DIFF? NO
[2017-03-14 13:47] LABS: WHITE BLOOD COUNT 20.8 10^3/ul (4.8-10.8)
[2017-03-14 13:47] LABS: BASOPHIL # 0.1 10^3/ul (0.0-0.1); BASOPHILS % 0.3 % (0.0-2.0); EOSINOPHILS % 0.1 % (0.0-7.0); HEMATOCRIT 26.3 % (37.0-47.0); HEMOGLOBIN 8.4 g/dl (12.0-16.0); LYMPHOCYTES # 2.3 10^3/ul (0.8-2.9); LYMPHOCYTES % 10.8 % (15.0-51.0); MEAN CORPUSCULAR HEMOGLOBIN 29.7 pg (29.0-33.0); MEAN CORPUSCULAR HGB CONC 31.9 g/dl (32.0-37.0); MEAN CORPUSCULAR VOLUME 92.9 fl (82.0-101.0); MEAN PLATELET VOLUME 8.3 fl (7.4-10.4); MONOCYTE # 1.1 10^3/ul (0.3-0.9); MONOCYTES % 5.1 % (0.0-11.0); NEUTROPHILS % 81.8 % (39.0-77.0); RED BLOOD COUNT 2.83 10^6/ul (4.20-5.40); RED CELL DISTRIBUTION WIDTH 15.1 % (11.5-14.5)
[2017-03-14 13:48] LABS: PLATELET COUNT 829 10^3/UL (140-415)
[2017-03-14 14:11] LABS: ANION GAP 16 (8-16); BLOOD UREA NITROGEN 4 mg/dl (7-20); CALCIUM 8.8 mg/dl (8.4-10.2); CARBON DIOXIDE 20 mmol/L (21-31); CHLORIDE 100 mmol/L (97-110); CREATININE 0.57 mg/dl (0.44-1.00); GLUCOSE 124 mg/dl (70-220); POTASSIUM 3.2 mmol/L (3.5-5.1); SODIUM 133 mmol/L (135-144)
[2017-03-14] MEDS: DEXTROSE 5% IVPB (17:50)
[2017-03-14] MEDS: AMIKACIN IVPB (17:50)
[2017-03-14] MEDS: ACETAMINOPHEN 650MG/20.3ML CUP GTB (20:50)
[2017-03-14] MEDS: ONDANSETRON 4 MG INJ IV (20:56)
[2017-03-15] MEDS: metroNIDAZOLE 500 MG/NS (PMX) 100 ML IVPB ×3 (05:16→22:40)
[2017-03-15] MEDS: PHENYTOIN (100 MG/4 ML) CUP GTB ×3 (09:39→21:34)
[2017-03-15] MEDS: DOCUSATE SODIUM 10 MG/ML (10ML CUP) PO ×2 (09:39→21:34)
[2017-03-15] MEDS: LINEZOLID 600 MG/D5W (PMX) 300 ML IVPB ×2 (09:40→21:31)
[2017-03-15] MEDS: TOPIRAMATE 100 MG TAB GTB ×2 (09:40→21:34)
[2017-03-15] MEDS: MULTIVITAMINS THERAPEUTIC TAB GTB (09:40)
[2017-03-15] MEDS: ASPIRIN 325 MG TAB PO (09:40)
[2017-03-15] MEDS: METOPROLOL 25 MG TAB GTB ×2 (09:41→21:35)
[2017-03-15] MEDS: LANSOPRAZOLE 30 MG CAP GTB (09:42)
[2017-03-15] MEDS: ESCITALOPRAM 10 MG TAB GTB (09:42)
[2017-03-15] MEDS: FLUCONAZOLE 100 MG TAB PO (09:42)
[2017-03-15] MEDS: ONDANSETRON 4 MG INJ IV ×2 (09:42→21:56)
[2017-03-15] MEDS: MEGESTROL (40 MG/ML) 10ML CUP PO (12:24)
[2017-03-15] MEDS: POTASSIUM CHLORIDE (SR) 20 MEQ TAB PO (12:25)
[2017-03-15 16:15] LABS: ADD MAN DIFF? NO
[2017-03-15] MEDS: DEXTROSE 5% IVPB (16:15)
[2017-03-15] MEDS: AMIKACIN IVPB (16:15)
[2017-03-15 16:20] LABS: ABNORMAL IP MESSAGE 1; BASOPHIL # 0.1 10^3/ul (0.0-0.1); BASOPHILS % 0.2 % (0.0-2.0); HEMATOCRIT 25.9 % (37.0-47.0); HEMOGLOBIN 8.5 g/dl (12.0-16.0); LYMPHOCYTES # 2.3 10^3/ul (0.8-2.9); LYMPHOCYTES % 9.1 % (15.0-51.0); MEAN CORPUSCULAR HGB CONC 32.8 g/dl (32.0-37.0); MEAN CORPUSCULAR VOLUME 91.5 fl (82.0-101.0); MEAN PLATELET VOLUME 9.8 fl (7.4-10.4); MONOCYTE # 1.7 10^3/ul (0.3-0.9); MONOCYTES % 6.7 % (0.0-11.0); NEUTROPHIL # 20.9 10^3/ul (1.6-7.5); NEUTROPHILS % 82.2 % (39.0-77.0); PLATELET COUNT 621 10^3/UL (140-415); RED BLOOD COUNT 2.83 10^6/ul (4.20-5.40); RED CELL DISTRIBUTION WIDTH 15.4 % (11.5-14.5)
[2017-03-15 16:20] LABS: WHITE BLOOD COUNT 25.5 10^3/ul (4.8-10.8)
[2017-03-15 16:26] LABS: POSITIVE DIFF @See below
[2017-03-15 16:50] LABS: ANION GAP 13 (8-16); BLOOD UREA NITROGEN 3 mg/dl (7-20); CALCIUM 8.3 mg/dl (8.4-10.2); CARBON DIOXIDE 20 mmol/L (21-31); CHLORIDE 101 mmol/L (97-110); CREATININE 0.59 mg/dl (0.44-1.00); GLUCOSE 159 mg/dl (70-220); POTASSIUM 3.5 mmol/L (3.5-5.1); SODIUM 130 mmol/L (135-144)
[2017-03-15] MEDS: NACL 0.9% 3 ML SYG IV (21:30)
[2017-03-16] MEDS: metroNIDAZOLE 500 MG/NS (PMX) 100 ML IVPB ×3 (05:13→22:41)
[2017-03-16 07:04] LABS: ABNORMAL IP MESSAGE 1; HEMATOCRIT 26.1 % (37.0-47.0); HEMOGLOBIN 8.4 g/dl (12.0-16.0); MEAN CORPUSCULAR HEMOGLOBIN 29.8 pg (29.0-33.0); MEAN CORPUSCULAR HGB CONC 32.2 g/dl (32.0-37.0); MEAN CORPUSCULAR VOLUME 92.6 fl (82.0-101.0); MEAN PLATELET VOLUME 9.1 fl (7.4-10.4); PLATELET COUNT 729 10^3/UL (140-415); RED BLOOD COUNT 2.82 10^6/ul (4.20-5.40); RED CELL DISTRIBUTION WIDTH 15.4 % (11.5-14.5)
[2017-03-16 07:04] LABS: WHITE BLOOD COUNT 28.4 10^3/ul (4.8-10.8)
[2017-03-16 07:15] LABS: ADD MAN DIFF? YES; POSITIVE DIFF @See below
[2017-03-16 07:32] LABS: ANION GAP 16 (8-16); BLOOD UREA NITROGEN 6 mg/dl (7-20); CARBON DIOXIDE 19 mmol/L (21-31); CHLORIDE 99 mmol/L (97-110); CREATININE 0.52 mg/dl (0.44-1.00); GLUCOSE 146 mg/dl (70-220); POTASSIUM 3.7 mmol/L (3.5-5.1); SODIUM 130 mmol/L (135-144)
[2017-03-16] MEDS: PHENYTOIN (100 MG/4 ML) CUP GTB ×3 (09:31→21:23)
[2017-03-16] MEDS: MEGESTROL (40 MG/ML) 10ML CUP PO ×2 (09:31→21:24)
[2017-03-16] MEDS: ASPIRIN 325 MG TAB PO (09:31)
[2017-03-16] MEDS: TOPIRAMATE 100 MG TAB GTB ×2 (09:31→21:23)
[2017-03-16] MEDS: DOCUSATE SODIUM 10 MG/ML (10ML CUP) PO ×2 (09:31→21:24)
[2017-03-16] MEDS: FLUCONAZOLE 100 MG TAB PO (09:32)
[2017-03-16] MEDS: LINEZOLID 600 MG/D5W (PMX) 300 ML IVPB ×2 (09:32→21:22)
[2017-03-16] MEDS: ESCITALOPRAM 10 MG TAB GTB (09:32)
[2017-03-16] MEDS: MULTIVITAMINS THERAPEUTIC TAB GTB (09:32)
[2017-03-16] MEDS: LANSOPRAZOLE 30 MG CAP GTB (09:32)
[2017-03-16] MEDS: METOPROLOL 25 MG TAB GTB ×2 (09:33→21:24)
[2017-03-16 10:26] LABS: ANISOCYTOSIS 1+ (0-0); BAND NEUTROPHILS #M 1.7 10^3/ul (0.0-0.6); BAND NEUTROPHILS % (M) 6 % (0-4); GIANT THROMBO% (M) 2 % (0-0); LYMPHOCYTES #M 3.6 10^3/ul (0.8-2.9); LYMPHOCYTES % (M) 13 % (15-51); MONOCYTE #M 1.1 10^3/ul (0.3-0.9); MONOCYTES % (M) 4 % (0-11); PLATELET ESTIMATE INCREASED; POIKILOCYTOSIS 1+ (0-0); POLYCHROMASIA 1+ (0-0); REACTIVE LYMPHOCYTES #M 0.5 10^3/ul (0.0-0.0); REACTIVE LYMPHOCYTES% (M) 2 % (0-0); SEG NEUT #M 21.8 10^3/ul (1.7-7.5); SEGMENTED NEUTROPHILS (M) % 75 % (39-77); SMUDGE%M 1 % (0-0)
[2017-03-16] MEDS: SOD CHLORIDE 0.9% 250 ML IV (10:50)
[2017-03-16] MEDS: BARIUM SULF 2% 450 ML BTL (BERRY SMOOTHIE) PO (11:09)
[2017-03-16] MEDS: AMIKACIN IVPB (16:19)
[2017-03-16] MEDS: DEXTROSE 5% IVPB (16:19)
[2017-03-17] MEDS: metroNIDAZOLE 500 MG/NS (PMX) 100 ML IVPB ×3 (05:47→23:44)
[2017-03-17 06:46] LABS: WHITE BLOOD COUNT 26.9 10^3/ul (4.8-10.8)
[2017-03-17 06:46] LABS: ABNORMAL IP MESSAGE 1; HEMATOCRIT 26.8 % (37.0-47.0); HEMOGLOBIN 8.4 g/dl (12.0-16.0); MEAN CORPUSCULAR HEMOGLOBIN 29.6 pg (29.0-33.0); MEAN CORPUSCULAR HGB CONC 31.3 g/dl (32.0-37.0); MEAN CORPUSCULAR VOLUME 94.4 fl (82.0-101.0); MEAN PLATELET VOLUME 11.3 fl (7.4-10.4); PLATELET COUNT 425 10^3/UL (140-415); RED BLOOD COUNT 2.84 10^6/ul (4.20-5.40); RED CELL DISTRIBUTION WIDTH 15.4 % (11.5-14.5)
[2017-03-17 06:59] LABS: POSITIVE DIFF @See below
[2017-03-17 07:00] LABS: ADD MAN DIFF? YES
[2017-03-17 07:07] LABS: ANION GAP 14 (8-16); BLOOD UREA NITROGEN 6 mg/dl (7-20); CALCIUM 8.3 mg/dl (8.4-10.2); CARBON DIOXIDE 20 mmol/L (21-31); CHLORIDE 98 mmol/L (97-110); CREATININE 0.49 mg/dl (0.44-1.00); GLUCOSE 144 mg/dl (70-220); POTASSIUM 3.9 mmol/L (3.5-5.1); SODIUM 128 mmol/L (135-144)
[2017-03-17] MEDS: FLUCONAZOLE 100 MG TAB PO (09:57)
[2017-03-17] MEDS: ESCITALOPRAM 10 MG TAB GTB (09:57)
[2017-03-17] MEDS: DOCUSATE SODIUM 10 MG/ML (10ML CUP) PO ×2 (09:57→22:03)
[2017-03-17] MEDS: LANSOPRAZOLE 30 MG CAP GTB (09:57)
[2017-03-17] MEDS: ASPIRIN 325 MG TAB PO (09:57)
[2017-03-17] MEDS: MEGESTROL (40 MG/ML) 10ML CUP PO ×2 (09:58→22:03)
[2017-03-17] MEDS: METOPROLOL 25 MG TAB GTB ×2 (09:58→21:00)
[2017-03-17 10:01] LABS: BAND NEUTROPHILS #M 2.1 10^3/ul (0.0-0.6); BAND NEUTROPHILS % (M) 8 % (0-4); LYMPHOCYTES #M 1.6 10^3/ul (0.8-2.9); LYMPHOCYTES % (M) 6 % (15-51); MONOCYTE #M 0.8 10^3/ul (0.3-0.9); MONOCYTES % (M) 3 % (0-11); PLASMAC%(M) 4 % (0); PLATELET ESTIMATE NORMAL; POLYCHROMASIA 1+ (0-0); SEG NEUT #M 21.8 10^3/ul (1.7-7.5); SEGMENTED NEUTROPHILS (M) % 79 % (39-77); SMUDGE%M 1 % (0-0)
[2017-03-17] MEDS: TOPIRAMATE 100 MG TAB GTB ×2 (10:01→22:03)
[2017-03-17] MEDS: MULTIVITAMINS THERAPEUTIC TAB GTB (10:01)
[2017-03-17] MEDS: PHENYTOIN (100 MG/4 ML) CUP GTB ×3 (10:01→22:02)
[2017-03-17] MEDS: LINEZOLID 600 MG/D5W (PMX) 300 ML IVPB ×2 (10:02→22:05)
[2017-03-17] MEDS: AMIKACIN IVPB (16:38)
[2017-03-17] MEDS: DEXTROSE 5% IVPB (16:38)
[2017-03-17 18:56] LABS: AMIKACIN TROUGH <2.5 mg/L (4.0-8.0)
[2017-03-18] MEDS: metroNIDAZOLE 500 MG/NS (PMX) 100 ML IVPB ×3 (05:43→22:19)
[2017-03-18] MEDS: MEGESTROL (40 MG/ML) 10ML CUP PO ×2 (09:29→09:48)
[2017-03-18] MEDS: DOCUSATE SODIUM 10 MG/ML (10ML CUP) PO ×2 (09:29→09:48)
[2017-03-18] MEDS: FLUCONAZOLE 100 MG TAB PO (09:48)
[2017-03-18] MEDS: MULTIVITAMINS THERAPEUTIC TAB GTB (09:48)
[2017-03-18] MEDS: ESCITALOPRAM 10 MG TAB GTB (09:48)
[2017-03-18] MEDS: LANSOPRAZOLE 30 MG CAP GTB (09:48)
[2017-03-18] MEDS: PHENYTOIN (100 MG/4 ML) CUP GTB ×3 (09:48→20:43)
[2017-03-18] MEDS: TOPIRAMATE 100 MG TAB GTB ×2 (09:48→20:44)
[2017-03-18] MEDS: ASPIRIN 325 MG TAB PO (09:48)
[2017-03-18] MEDS: METOPROLOL 25 MG TAB GTB ×2 (09:49→20:43)
[2017-03-18] MEDS: LINEZOLID 600 MG/D5W (PMX) 300 ML IVPB ×2 (09:50→20:44)
[2017-03-18 12:20] LABS: WHITE BLOOD COUNT 27.2 10^3/ul (4.8-10.8)
[2017-03-18 12:20] LABS: ABNORMAL IP MESSAGE 1; HEMATOCRIT 24.7 % (37.0-47.0); MEAN CORPUSCULAR HEMOGLOBIN 29.9 pg (29.0-33.0); MEAN CORPUSCULAR HGB CONC 32.4 g/dl (32.0-37.0); MEAN CORPUSCULAR VOLUME 92.2 fl (82.0-101.0); MEAN PLATELET VOLUME 8.9 fl (7.4-10.4); PLATELET COUNT 752 10^3/UL (140-415); RED BLOOD COUNT 2.68 10^6/ul (4.20-5.40); RED CELL DISTRIBUTION WIDTH 15.3 % (11.5-14.5)
[2017-03-18 12:36] LABS: POSITIVE DIFF @See below
[2017-03-18 12:37] LABS: ADD MAN DIFF? YES
[2017-03-18 12:48] LABS: ANION GAP 13 (8-16); BLOOD UREA NITROGEN 7 mg/dl (7-20); CALCIUM 8.3 mg/dl (8.4-10.2); CARBON DIOXIDE 20 mmol/L (21-31); CHLORIDE 98 mmol/L (97-110); CREATININE 0.49 mg/dl (0.44-1.00); GLUCOSE 182 mg/dl (70-220); POTASSIUM 3.4 mmol/L (3.5-5.1); SODIUM 128 mmol/L (135-144)
[2017-03-18 12:49] LABS: PHENYTOIN (DILANTIN) 15.5 ug/ml (10.0-20.0)
[2017-03-18 14:22] LABS: BAND NEUTROPHILS #M 1.9 10^3/ul (0.0-0.6); BAND NEUTROPHILS % (M) 7 % (0-4); LYMPHOCYTES #M 1.6 10^3/ul (0.8-2.9); LYMPHOCYTES % (M) 6 % (15-51); MONOCYTE #M 2.4 10^3/ul (0.3-0.9); MONOCYTES % (M) 9 % (0-11); PLATELET ESTIMATE INCREASED; POLYCHROMASIA 2+ (0-0); REACTIVE LYMPHOCYTES% (M) 4 % (0-0); SEG NEUT #M 20.6 10^3/ul (1.7-7.5); SEGMENTED NEUTROPHILS (M) % 74 % (39-77); SMUDGE%M 4 % (0-0)
[2017-03-18] MEDS: DEXTROSE 5% IVPB (16:30)
[2017-03-18] MEDS: AMIKACIN IVPB (16:30)
[2017-03-19] MEDS: metroNIDAZOLE 500 MG/NS (PMX) 100 ML IVPB ×3 (05:40→21:54)
[2017-03-19 07:27] LABS: ADD MAN DIFF? NO
[2017-03-19 07:35] LABS: ABNORMAL IP MESSAGE 1; BASOPHIL # 0.1 10^3/ul (0.0-0.1); BASOPHILS % 0.3 % (0.0-2.0); EOSINOPHILS % 0.1 % (0.0-7.0); HEMATOCRIT 25.3 % (37.0-47.0); HEMOGLOBIN 7.9 g/dl (12.0-16.0); LYMPHOCYTES # 2.2 10^3/ul (0.8-2.9); LYMPHOCYTES % 10.3 % (15.0-51.0); MEAN CORPUSCULAR HEMOGLOBIN 29.4 pg (29.0-33.0); MEAN CORPUSCULAR HGB CONC 31.2 g/dl (32.0-37.0); MEAN CORPUSCULAR VOLUME 94.1 fl (82.0-101.0); MONOCYTE # 1.7 10^3/ul (0.3-0.9); MONOCYTES % 7.6 % (0.0-11.0); NEUTROPHIL # 17.3 10^3/ul (1.6-7.5); NEUTROPHILS % 79.8 % (39.0-77.0); PLATELET COUNT 383 10^3/UL (140-415); RED BLOOD COUNT 2.69 10^6/ul (4.20-5.40); RED CELL DISTRIBUTION WIDTH 15.6 % (11.5-14.5)
[2017-03-19 07:35] LABS: WHITE BLOOD COUNT 21.7 10^3/ul (4.8-10.8)
[2017-03-19 07:39] LABS: POSITIVE DIFF @See below
[2017-03-19 07:55] LABS: ANION GAP 15 (8-16); BLOOD UREA NITROGEN 7 mg/dl (7-20); CALCIUM 8.4 mg/dl (8.4-10.2); CARBON DIOXIDE 19 mmol/L (21-31); CHLORIDE 99 mmol/L (97-110); CREATININE 0.52 mg/dl (0.44-1.00); GLUCOSE 117 mg/dl (70-220); POTASSIUM 3.6 mmol/L (3.5-5.1); SODIUM 129 mmol/L (135-144)
[2017-03-19] MEDS: PHENYTOIN (100 MG/4 ML) CUP GTB ×3 (08:39→20:37)
[2017-03-19] MEDS: ESCITALOPRAM 10 MG TAB GTB (08:39)
[2017-03-19] MEDS: MULTIVITAMINS THERAPEUTIC TAB GTB (08:40)
[2017-03-19] MEDS: TOPIRAMATE 100 MG TAB GTB ×2 (08:40→20:38)
[2017-03-19] MEDS: LANSOPRAZOLE 30 MG CAP GTB (08:40)
[2017-03-19] MEDS: METOPROLOL 25 MG TAB GTB ×2 (08:40→20:38)
[2017-03-19] MEDS: DOCUSATE SODIUM 10 MG/ML (10ML CUP) PO ×2 (08:41→20:37)
[2017-03-19] MEDS: FLUCONAZOLE 100 MG TAB PO (08:41)
[2017-03-19] MEDS: MEGESTROL (40 MG/ML) 10ML CUP PO ×2 (08:42→20:38)
[2017-03-19] MEDS: ASPIRIN 325 MG TAB PO (08:42)
[2017-03-19] MEDS: LINEZOLID 600 MG/D5W (PMX) 300 ML IVPB ×2 (09:18→20:41)
[2017-03-19] MEDS: AMIKACIN IVPB ×2 (16:00→17:38)
[2017-03-19] MEDS: DEXTROSE 5% IVPB ×2 (16:00→17:38)
[2017-03-19] MEDS: LORAZEPAM 1 MG TAB GTB ×2 (17:12→22:54)
[2017-03-19] MEDS: ACETAMINOPHEN 650MG/20.3ML CUP GTB (17:12)
[2017-03-19 18:16] LABS: OSMOLALITY 264 mOsm/kg (280-295)
[2017-03-19] MEDS: ONDANSETRON 4 MG INJ IV (23:54)
[2017-03-20] MEDS: metroNIDAZOLE 500 MG/NS (PMX) 100 ML IVPB ×3 (05:43→22:23)
[2017-03-20 06:24] LABS: ADD MAN DIFF? NO
[2017-03-20 06:27] LABS: WHITE BLOOD COUNT 24.9 10^3/ul (4.8-10.8)
[2017-03-20 06:27] LABS: ABNORMAL IP MESSAGE 1; BASOPHIL # 0.1 10^3/ul (0.0-0.1); BASOPHILS % 0.3 % (0.0-2.0); EOSINOPHILS % 0.1 % (0.0-7.0); HEMATOCRIT 25.8 % (37.0-47.0); HEMOGLOBIN 8.4 g/dl (12.0-16.0); LYMPHOCYTES # 2.7 10^3/ul (0.8-2.9); LYMPHOCYTES % 10.9 % (15.0-51.0); MEAN CORPUSCULAR HEMOGLOBIN 29.6 pg (29.0-33.0); MEAN CORPUSCULAR HGB CONC 32.6 g/dl (32.0-37.0); MEAN CORPUSCULAR VOLUME 90.8 fl (82.0-101.0); MEAN PLATELET VOLUME 9.3 fl (7.4-10.4); MONOCYTE # 1.6 10^3/ul (0.3-0.9); MONOCYTES % 6.3 % (0.0-11.0); NEUTROPHILS % 80.5 % (39.0-77.0); PLATELET COUNT 633 10^3/UL (140-415); RED BLOOD COUNT 2.84 10^6/ul (4.20-5.40); RED CELL DISTRIBUTION WIDTH 15.4 % (11.5-14.5)
[2017-03-20 06:29] LABS: POSITIVE DIFF @See below
[2017-03-20 07:09] LABS: ANION GAP 15 (8-16); BLOOD UREA NITROGEN 7 mg/dl (7-20); CALCIUM 8.8 mg/dl (8.4-10.2); CARBON DIOXIDE 22 mmol/L (21-31); CHLORIDE 97 mmol/L (97-110); CREATININE 0.51 mg/dl (0.44-1.00); GLUCOSE 114 mg/dl (70-220); SODIUM 130 mmol/L (135-144)
[2017-03-20] MEDS: MEGESTROL (40 MG/ML) 10ML CUP PO ×2 (08:53→21:28)
[2017-03-20] MEDS: ESCITALOPRAM 10 MG TAB GTB (08:53)
[2017-03-20] MEDS: FLUCONAZOLE 100 MG TAB PO (08:53)
[2017-03-20] MEDS: ASPIRIN 325 MG TAB PO (08:53)
[2017-03-20] MEDS: DOCUSATE SODIUM 10 MG/ML (10ML CUP) PO ×2 (08:53→21:28)
[2017-03-20] MEDS: PHENYTOIN (100 MG/4 ML) CUP GTB ×3 (08:53→21:28)
[2017-03-20] MEDS: LINEZOLID 600 MG/D5W (PMX) 300 ML IVPB ×2 (08:53→21:30)
[2017-03-20] MEDS: METOPROLOL 25 MG TAB GTB ×2 (08:54→21:29)
[2017-03-20] MEDS: MULTIVITAMINS THERAPEUTIC TAB GTB (08:54)
[2017-03-20] MEDS: TOPIRAMATE 100 MG TAB GTB ×2 (08:54→21:29)
[2017-03-20] MEDS: LANSOPRAZOLE 30 MG CAP GTB (08:54)
[2017-03-20 09:39] LABS: ANISOCYTOSIS 1+ (0-0); BAND NEUTROPHILS #M 1.9 10^3/ul (0.0-0.6); BAND NEUTROPHILS % (M) 8 % (0-4); LYMPHOCYTES #M 2.9 10^3/ul (0.8-2.9); LYMPHOCYTES % (M) 12 % (15-51); MONOCYTE #M 0.9 10^3/ul (0.3-0.9); MONOCYTES % (M) 4 % (0-11); PLATELET ESTIMATE INCREASED; POLYCHROMASIA 1+ (0-0); ROULEAU 1+ (0-0); SEG NEUT #M 18.9 10^3/ul (1.7-7.5); SEGMENTED NEUTROPHILS (M) % 74 % (39-77); SMUDGE%M 2 % (0-0)
[2017-03-20 13:06] LABS: SODIUM,URINE RANDOM 81 mmol/L (30-90)
[2017-03-20] MEDS: AMIKACIN IVPB (16:34)
[2017-03-20] MEDS: DEXTROSE 5% IVPB (16:34)
[2017-03-20 18:35] LABS: OSMOLALITY,URINE 288 mOsm/kg (250-1200)
[2017-03-21] MEDS: metroNIDAZOLE 500 MG/NS (PMX) 100 ML IVPB ×3 (05:53→22:05)
[2017-03-21 07:37] LABS: WHITE BLOOD COUNT 27.2 10^3/ul (4.8-10.8)
[2017-03-21 07:37] LABS: ABNORMAL IP MESSAGE 1; HEMATOCRIT 22.9 % (37.0-47.0); HEMOGLOBIN 7.6 g/dl (12.0-16.0); MEAN CORPUSCULAR HGB CONC 33.2 g/dl (32.0-37.0); MEAN CORPUSCULAR VOLUME 87.4 fl (82.0-101.0); MEAN PLATELET VOLUME 9.1 fl (7.4-10.4); PLATELET COUNT 634 10^3/UL (140-415); RED BLOOD COUNT 2.62 10^6/ul (4.20-5.40); RED CELL DISTRIBUTION WIDTH 15.1 % (11.5-14.5)
[2017-03-21 07:44] LABS: ADD MAN DIFF? YES; POSITIVE DIFF @See below
[2017-03-21] MEDS: LINEZOLID 600 MG/D5W (PMX) 300 ML IVPB ×2 (08:04→20:41)
[2017-03-21 08:08] LABS: BLOOD UREA NITROGEN 5 mg/dl (7-20); CARBON DIOXIDE 20 mmol/L (21-31); CHLORIDE 97 mmol/L (97-110); GLUCOSE 143 mg/dl (70-220); POTASSIUM 3.2 mmol/L (3.5-5.1)
[2017-03-21 08:28] LABS: ANISOCYTOSIS 1+ (0-0); BAND NEUTROPHILS % (M) 15 % (0-4); LYMPHOCYTES #M 1.9 10^3/ul (0.8-2.9); LYMPHOCYTES % (M) 7 % (15-51); MONOCYTE #M 1.6 10^3/ul (0.3-0.9); MONOCYTES % (M) 6 % (0-11); PLATELET ESTIMATE INCREASED; SEG NEUT #M 20.7 10^3/ul (1.7-7.5); SEGMENTED NEUTROPHILS (M) % 72 % (39-77); SMUDGE%M 4 % (0-0)
[2017-03-21 08:37] LABS: ANION GAP 14 (8-16); CALCIUM 8.3 mg/dl (8.4-10.2); SODIUM 128 mmol/L (135-144)
[2017-03-21] MEDS ORDERED: PHENYLephrine (100 MCG/ML) 5ML SYG (08:59)
[2017-03-21] MEDS: MULTIVITAMINS THERAPEUTIC TAB GTB (09:00)
[2017-03-21] MEDS: LANSOPRAZOLE 30 MG CAP GTB (09:00)
[2017-03-21] MEDS: METOPROLOL 25 MG TAB GTB ×2 (09:00→20:42)
[2017-03-21] MEDS: TOPIRAMATE 100 MG TAB GTB ×2 (09:00→20:42)
[2017-03-21] MEDS: ASPIRIN 325 MG TAB PO (09:00)
[2017-03-21] MEDS: DOCUSATE SODIUM 10 MG/ML (10ML CUP) PO ×2 (09:00→20:41)
[2017-03-21] MEDS: MEGESTROL (40 MG/ML) 10ML CUP PO ×2 (09:00→20:41)
[2017-03-21] MEDS: FLUCONAZOLE 100 MG TAB PO (09:00)
[2017-03-21] MEDS: PHENYTOIN (100 MG/4 ML) CUP GTB ×3 (09:00→20:42)
[2017-03-21] MEDS: ESCITALOPRAM 10 MG TAB GTB (09:00)
[2017-03-21] MEDS ORDERED: POTASSIUM CHLORIDE 40 MEQ in DEXTROSE 5% 250 ML IVPB (10:00)
[2017-03-21] MEDS ORDERED: PROPOFOL 20 ML (10:07)
[2017-03-21] MEDS ORDERED: LIDOCAINE 2% (SDV) 5 ML INJ (10:07)
[2017-03-21] MEDS ORDERED: hydrALAzine 20 MG INJ IV (11:30)
[2017-03-21] MEDS ORDERED: LABETALOL HCL 20MG INJ IV (11:30)
[2017-03-21] MEDS ORDERED: FENTAnyl 50 MCG/ML VIAL IV (12:30)
[2017-03-21] MEDS: POTASSIUM CHLORIDE 50 ML IVPB ×4 (15:53→19:02)
[2017-03-21] MEDS: AMIKACIN IVPB (17:15)
[2017-03-21] MEDS: DEXTROSE 5% IVPB (17:15)
[2017-03-21] MEDS: morphine 2 MG INJ IV (17:19)
[2017-03-21] MEDS: SOD CHLORIDE 0.9% 1,000 ML IV (19:02)
[2017-03-22] MEDS: morphine 2 MG INJ IV ×2 (01:14→09:21)
[2017-03-22 05:54] LABS: ADD MAN DIFF? NO
[2017-03-22 06:02] LABS: BASOPHILS % 0.4 % (0.0-2.0); EOSINOPHILS % 0.4 % (0.0-7.0); HEMOGLOBIN 7.3 g/dl (12.0-16.0); LYMPHOCYTES # 2.3 10^3/ul (0.8-2.9); MEAN CORPUSCULAR HEMOGLOBIN 29.1 pg (29.0-33.0); MEAN CORPUSCULAR HGB CONC 31.7 g/dl (32.0-37.0); MEAN CORPUSCULAR VOLUME 91.6 fl (82.0-101.0); MEAN PLATELET VOLUME 10.5 fl (7.4-10.4); MONOCYTES % 9.5 % (0.0-11.0); NEUTROPHILS % 64.4 % (39.0-77.0); PLATELET COUNT 334 10^3/UL (140-415); RED BLOOD COUNT 2.51 10^6/ul (4.20-5.40); RED CELL DISTRIBUTION WIDTH 15.5 % (11.5-14.5)
[2017-03-22 06:02] LABS: WHITE BLOOD COUNT 10.9 10^3/ul (4.8-10.8)
[2017-03-22] MEDS: metroNIDAZOLE 500 MG/NS (PMX) 100 ML IVPB ×3 (06:10→22:21)
[2017-03-22] MEDS: SOD CHLORIDE 0.9% 1,000 ML IV (06:11)
[2017-03-22 06:28] LABS: ANION GAP 14 (8-16); BLOOD UREA NITROGEN 8 mg/dl (7-20); CALCIUM 8.2 mg/dl (8.4-10.2); CARBON DIOXIDE 19 mmol/L (21-31); CHLORIDE 102 mmol/L (97-110); CREATININE 0.47 mg/dl (0.44-1.00); GLUCOSE 96 mg/dl (70-220); POTASSIUM 3.6 mmol/L (3.5-5.1); SODIUM 131 mmol/L (135-144)
[2017-03-22] MEDS: ESCITALOPRAM 10 MG TAB GTB (09:00)
[2017-03-22] MEDS: ASPIRIN 325 MG TAB PO (09:00)
[2017-03-22] MEDS: METOPROLOL 25 MG TAB GTB ×2 (09:00→20:49)
[2017-03-22] MEDS: FLUCONAZOLE 100 MG TAB PO (09:00)
[2017-03-22] MEDS: MEGESTROL (40 MG/ML) 10ML CUP PO (09:00)
[2017-03-22] MEDS: PHENYTOIN (100 MG/4 ML) CUP GTB ×3 (09:00→20:49)
[2017-03-22] MEDS: LANSOPRAZOLE 30 MG CAP GTB (09:00)
[2017-03-22] MEDS: MULTIVITAMINS THERAPEUTIC TAB GTB (09:00)
[2017-03-22] MEDS: DOCUSATE SODIUM 10 MG/ML (10ML CUP) PO ×2 (09:00→20:48)
[2017-03-22] MEDS: TOPIRAMATE 100 MG TAB GTB ×2 (09:00→20:49)
[2017-03-22] MEDS: LINEZOLID 600 MG/D5W (PMX) 300 ML IVPB ×2 (09:21→20:48)
[2017-03-22] MEDS ORDERED: BUPIVACAINE 0.25%/EPI (SDV) 30 ML INJ (11:10)
[2017-03-22] MEDS ORDERED: PROPOFOL 20 ML (11:37)
[2017-03-22] MEDS ORDERED: ROCURONIUM 50 MG INJ ×2 (11:37→13:10)
[2017-03-22] MEDS ORDERED: LIDOCAINE 2% (SDV) 5 ML INJ (11:37)
[2017-03-22] MEDS ORDERED: FENTAnyl 50 MCG/ML VIAL (11:38)
[2017-03-22] MEDS ORDERED: MIDAZOLAM 1 MG/ML 2 ML INJ (11:42)
[2017-03-22] MEDS ORDERED: PHENYLephrine (100 MCG/ML) 5ML SYG ×2 (11:51→15:05)
[2017-03-22 12:38] LABS: IMMEDIATE SPIN CROSSMATCH 1 2
[2017-03-22] MEDS: BUPIVACAINE 0.25% (MPF) 30 ML INJ (13:59)
[2017-03-22] MEDS ORDERED: SUGAMMADEX SODIUM 200 MG/2 ML VIAL IV (14:50)
[2017-03-22] MEDS ORDERED: ALBUMIN HUMAN 5% 250 ML (15:18)
[2017-03-22] MEDS ORDERED: HYDROCODONE/APAP (5/325) TAB PO ×2 (15:30)
[2017-03-22] MEDS ORDERED: DOCUSATE SODIUM 100 MG CAP PO (15:30)
[2017-03-22] MEDS ORDERED: BISACODYL 10 MG SUPP PR (15:30)
[2017-03-22] MEDS ORDERED: NA PHOSPHATE/BIPHOS 133 ML ENEMA PR (15:30)
[2017-03-22] MEDS: PHYTONADIONE 2 MG in DEXTROSE 5% 50 ML IVPB (15:55)
[2017-03-22 15:57] LABS: ABNORMAL IP MESSAGE 1; HEMATOCRIT 24.3 % (37.0-47.0); HEMOGLOBIN 8.1 g/dl (12.0-16.0); MEAN CORPUSCULAR HEMOGLOBIN 29.9 pg (29.0-33.0); MEAN CORPUSCULAR HGB CONC 33.3 g/dl (32.0-37.0); MEAN CORPUSCULAR VOLUME 89.7 fl (82.0-101.0); MEAN PLATELET VOLUME 8.4 fl (7.4-10.4); PLATELET COUNT 695 10^3/UL (140-415); RED BLOOD COUNT 2.71 10^6/ul (4.20-5.40); RED CELL DISTRIBUTION WIDTH 15.1 % (11.5-14.5)
[2017-03-22 15:57] LABS: WHITE BLOOD COUNT 26.9 10^3/ul (4.8-10.8)
[2017-03-22] MEDS ORDERED: ONDANSETRON 4 MG INJ IV ×2 (16:00→16:21)
[2017-03-22] MEDS ORDERED: DIPHENHYDRAMINE 50 MG INJ IV (16:00)
[2017-03-22] MEDS ORDERED: HYDROmorphONE (0.2 MG/ML) 10ML SYG IV (16:00)
[2017-03-22] MEDS: FENTAnyl 50 MCG/ML VIAL IV (16:01)
[2017-03-22 16:02] LABS: ADD MAN DIFF? YES; POSITIVE DIFF @See below
[2017-03-22 16:14] LABS: PROTIME 16.4 Sec (11.9-14.9); PT RATIO 1.3
[2017-03-22 16:15] LABS: PARTIAL THROMBOPLASTIN TIME 39.3 Sec (25.0-35.0)
[2017-03-22] MEDS ORDERED: DEXAMETHASONE 4 MG/ML 1 ML INJ IV (16:21)
[2017-03-22] MEDS ORDERED: SEVOFLURANE 15 MIN INH (16:21)
[2017-03-22] MEDS ORDERED: SUCCINYLCHOLINE CHLORIDE 100 MG/5 ML SYG IV (16:21)
[2017-03-22] MEDS: D5W-0.45 NACL + KCL 20 MEQ 1,000 ML IV (17:04)
[2017-03-22] MEDS: DEXTROSE 5% IVPB (17:05)
[2017-03-22] MEDS: AMIKACIN IVPB (17:05)
[2017-03-22 17:11] LABS: ANISOCYTOSIS 1+ (0-0); BAND NEUTROPHILS #M 5.9 10^3/ul (0.0-0.6); BAND NEUTROPHILS % (M) 22 % (0-4); LYMPHOCYTES #M 0.8 10^3/ul (0.8-2.9); LYMPHOCYTES % (M) 3 % (15-51); MONOCYTE #M 0.8 10^3/ul (0.3-0.9); MONOCYTES % (M) 3 % (0-11); PLATELET ESTIMATE INCREASED; POIKILOCYTOSIS 1+ (0-0); SEGMENTED NEUTROPHILS (M) % 72 % (39-77); SMUDGE%M 5 % (0-0)
[2017-03-22 17:28] LABS: ANION GAP 14 (8-16); BLOOD UREA NITROGEN 8 mg/dl (7-20); CALCIUM 7.4 mg/dl (8.4-10.2); CARBON DIOXIDE 15 mmol/L (21-31); CHLORIDE 106 mmol/L (97-110); CREATININE 0.55 mg/dl (0.44-1.00); GLUCOSE 247 mg/dl (70-220); POTASSIUM 3.1 mmol/L (3.5-5.1); SODIUM 132 mmol/L (135-144)
[2017-03-22] MEDS: FAMOTIDINE 20 MG INJ IV (17:34)
[2017-03-22] MEDS: HYDROmorphONE 0.5 MG/0.5 ML SYG IV (20:48)
[2017-03-22] MEDS: SOD CHLORIDE 0.9% 500 ML IV (23:12)
[2017-03-22] MEDS: ACETAMINOPHEN 650MG/20.3ML CUP GTB (23:16)
[2017-03-22] MEDS: HYDROmorphONE 1 MG/ML SYG IV (23:19)
[2017-03-23 00:09] LABS: ANION GAP 19 (8-16); BLOOD UREA NITROGEN 4 mg/dl (7-20); CALCIUM 7.9 mg/dl (8.4-10.2); CARBON DIOXIDE 16 mmol/L (21-31); CHLORIDE 100 mmol/L (97-110); CREATININE 0.44 mg/dl (0.44-1.00); GLUCOSE 227 mg/dl (70-220); MAGNESIUM 1.5 mg/dl (1.7-2.5); POTASSIUM 3.3 mmol/L (3.5-5.1); SODIUM 132 mmol/L (135-144)
[2017-03-23 00:12] LABS: LACTIC ACID 4.2 mmol/L (0.5-2.0)
[2017-03-23 00:20] LABS: ADD MAN DIFF? NO
[2017-03-23 00:22] LABS: WHITE BLOOD COUNT 28.4 10^3/ul (4.8-10.8)
[2017-03-23 00:22] LABS: ABNORMAL IP MESSAGE 1; BASOPHIL # 0.1 10^3/ul (0.0-0.1); BASOPHILS % 0.3 % (0.0-2.0); HEMATOCRIT 26.6 % (37.0-47.0); LYMPHOCYTES # 1.6 10^3/ul (0.8-2.9); LYMPHOCYTES % 5.5 % (15.0-51.0); MEAN CORPUSCULAR HEMOGLOBIN 29.5 pg (29.0-33.0); MEAN CORPUSCULAR HGB CONC 33.8 g/dl (32.0-37.0); MEAN CORPUSCULAR VOLUME 87.2 fl (82.0-101.0); MEAN PLATELET VOLUME 9.4 fl (7.4-10.4); MONOCYTES % 3.5 % (0.0-11.0); NEUTROPHIL # 24.8 10^3/ul (1.6-7.5); NEUTROPHILS % 87.4 % (39.0-77.0); PLATELET COUNT 629 10^3/UL (140-415); POSITIVE DIFF @See below; RED BLOOD COUNT 3.05 10^6/ul (4.20-5.40); RED CELL DISTRIBUTION WIDTH 15.6 % (11.5-14.5)
[2017-03-23] MEDS: SOD CHLORIDE 0.9% 500 ML IV ×2 (01:00→13:59)
[2017-03-23 01:04] LABS: ADD UMIC NO; UR ASCORBIC ACID NEGATIVE (NEGATIVE); UR BILIRUBIN (Dip) NEGATIVE (NEGATIVE); UR BLOOD (Dip) NEGATIVE (NEGATIVE); UR CLARITY CLEAR (CLEAR); UR COLOR YELLOW (YELLOW); UR GLUCOSE (Dip) NEGATIVE (NEGATIVE); UR KETONES (Dip) NEGATIVE (NEGATIVE); UR LEUKOCYTE ESTERASE (Dip) NEGATIVE Leu/ul (NEGATIVE); UR NITRITE (Dip) NEGATIVE (NEGATIVE); UR SPECIFIC GRAVITY (Dip) 1.008 (1.003-1.030); UR TOTAL PROTEIN (Dip) NEGATIVE (NEGATIVE); UR UROBILINOGEN (Dip) NEGATIVE (NEGATIVE)
[2017-03-23] MEDS: D5W-0.45 NACL + KCL 20 MEQ 1,000 ML IV (01:30)
[2017-03-23] MEDS ORDERED: MEROPENEM 1 GM/50ML(PMX) 50 ML IVPB (02:00)
[2017-03-23] MEDS: MAGNESIUM SULFATE 2 GM/50 ML 50 ML IVPB (02:40)
[2017-03-23] MEDS: ONDANSETRON 4 MG INJ IV ×2 (02:49→13:09)
[2017-03-23] MEDS: HYDROmorphONE 1 MG/ML SYG IV (02:50)
[2017-03-23] MEDS: POTASSIUM CHLORIDE 40 MEQ in SOD CHLORIDE 0.9% 250 ML IV (04:52)
[2017-03-23] MEDS ORDERED: METOCLOPRAMIDE 10 MG INJ IV (05:00)
[2017-03-23] MEDS: morphine 2 MG INJ IV (05:58)
[2017-03-23] MEDS: metroNIDAZOLE 500 MG/NS (PMX) 100 ML IVPB ×3 (05:59→22:37)
[2017-03-23 06:23] LABS: ADD MAN DIFF? NO
[2017-03-23 06:26] LABS: ABNORMAL IP MESSAGE 1; BASOPHIL # 0.2 10^3/ul (0.0-0.1); BASOPHILS % 0.5 % (0.0-2.0); HEMOGLOBIN 10.9 g/dl (12.0-16.0); LYMPHOCYTES # 1.5 10^3/ul (0.8-2.9); LYMPHOCYTES % 4.6 % (15.0-51.0); MEAN CORPUSCULAR HEMOGLOBIN 29.3 pg (29.0-33.0); MEAN CORPUSCULAR VOLUME 88.7 fl (82.0-101.0); MEAN PLATELET VOLUME 10.7 fl (7.4-10.4); MONOCYTE # 1.3 10^3/ul (0.3-0.9); MONOCYTES % 4.1 % (0.0-11.0); NEUTROPHIL # 28.3 10^3/ul (1.6-7.5); NEUTROPHILS % 87.7 % (39.0-77.0); PLATELET COUNT 400 10^3/UL (140-415); RED BLOOD COUNT 3.72 10^6/ul (4.20-5.40); RED CELL DISTRIBUTION WIDTH 16.1 % (11.5-14.5)
[2017-03-23 06:26] LABS: WHITE BLOOD COUNT 32.3 10^3/ul (4.8-10.8)
[2017-03-23 06:28] LABS: POSITIVE DIFF @See below
[2017-03-23 07:04] LABS: INR 1.21; PROTIME 15.5 Sec (11.9-14.9); PT RATIO 1.2
[2017-03-23 07:05] LABS: PARTIAL THROMBOPLASTIN TIME 36.7 Sec (25.0-35.0)
[2017-03-23 07:12] LABS: ALANINE AMINOTRANSFERASE 18 IU/L (13-69); ALBUMIN/GLOBULIN RATIO 0.68; ALKALINE PHOSPHATASE 198 IU/L (42-121); ANION GAP 17 (8-16); ASPARTATE AMINO TRANSFERASE 33 IU/L (15-46); BILIRUBIN,INDIRECT 0.1 mg/dl (0-1.1); BILIRUBIN,TOTAL 0.1 mg/dl (0.2-1.3); BLOOD UREA NITROGEN 5 mg/dl (7-20); CARBON DIOXIDE 16 mmol/L (21-31); CHLORIDE 104 mmol/L (97-110); GLUCOSE 196 mg/dl (70-220); MAGNESIUM 2.8 mg/dl (1.7-2.5); PHOSPHORUS 4.7 mg/dl (2.5-4.9); SODIUM 133 mmol/L (135-144); TOTAL PROTEIN 7.4 g/dl (6.1-8.1)
[2017-03-23 07:13] LABS: B-TYPE NATRIURETIC PEPTIDE 1350 PG/ML (0-125)
[2017-03-23 07:19] LABS: ANION GAP 18 (8-16); BLOOD UREA NITROGEN 6 mg/dl (7-20); CALCIUM 8.1 mg/dl (8.4-10.2); CARBON DIOXIDE 15 mmol/L (21-31); CHLORIDE 104 mmol/L (97-110); CREATININE 0.51 mg/dl (0.44-1.00); GLUCOSE 187 mg/dl (70-220); POTASSIUM 4.4 mmol/L (3.5-5.1); SODIUM 133 mmol/L (135-144)
[2017-03-23 07:21] LABS: LACTIC ACID 3.2 mmol/L (0.5-2.0)
[2017-03-23] MEDS: METOPROLOL 25 MG TAB GTB ×2 (09:00→22:38)
[2017-03-23] MEDS: PHENYTOIN (100 MG/4 ML) CUP GTB ×3 (09:04→21:02)
[2017-03-23] MEDS: MULTIVITAMINS THERAPEUTIC TAB GTB (09:05)
[2017-03-23] MEDS: LANSOPRAZOLE 30 MG CAP GTB (09:05)
[2017-03-23] MEDS: TOPIRAMATE 100 MG TAB GTB ×2 (09:05→22:38)
[2017-03-23] MEDS: ESCITALOPRAM 10 MG TAB GTB (09:05)
[2017-03-23] MEDS: FLUCONAZOLE 100 MG TAB PO (09:06)
[2017-03-23] MEDS: DOCUSATE SODIUM 10 MG/ML (10ML CUP) PO ×2 (09:06→20:53)
[2017-03-23] MEDS: ASPIRIN 325 MG TAB PO (09:06)
[2017-03-23] MEDS: FAMOTIDINE 20 MG INJ IV (09:06)
[2017-03-23] MEDS: LINEZOLID 600 MG/D5W (PMX) 300 ML IVPB ×2 (09:34→20:54)
[2017-03-23] MEDS: ENOXAPARIN 40 MG/0.4 ML SYG SC (09:48)
[2017-03-23] MEDS: SOD CHLORIDE 0.9% 1,000 ML IV (10:30)
[2017-03-23] MEDS: SOD CHLORIDE 0.9% 1,920 ML IV (10:36)
[2017-03-23 10:37] LABS: PATH REVIEW CH
[2017-03-23] MEDS: NORepinephrine 8MG/250 ML (PMX 250 ML IV (10:58)
[2017-03-23 11:34] LABS: AADO2 Arterial 49.7 mmHg (7.0-24.0); Allen Test ACCEPTAB; Arterial Blood Gas Oxygen Sat 95.1 mmHG (95.0-98.0); Arterial COHb 0.3 % (0.0-3.0); Arterial Fraction of Oxyhgb 94.6 % (93.0-99.0); Arterial HCO3 9.4 mmol/L (22.0-26.0); Arterial MetHb 0.2 % (0.0-1.5); Arterial Total Hemglobin 11.2 g/dl (12.0-18.0); Arterial pCO2 17.4 mmhg (35-45); MODE ROOM AIR; Site Left Radial
[2017-03-23] MEDS ORDERED: NA BICARBONATE 8.4% 50 ML SYG (11:42)
[2017-03-23] MEDS ORDERED: SODIUM BICARBONATE (IV ADD) 50 MEQ in SOD CHLORIDE 0.45% 1,000 ML IV (12:00)
[2017-03-23] MEDS ORDERED: SODIUM BICARBONATE (IV ADD) 50 MEQ in SOD CHLORIDE 0.45% 950 ML IV (12:00)
[2017-03-23] MEDS: LIDOCAINE 1% (MPF) 5 ML VIAL SC (12:44)
[2017-03-23] MEDS: NA BICARBONATE 8.4% 50 ML SYG IV ×2 (12:44)
[2017-03-23] MEDS: SODIUM BICARBONATE (IV ADD) 150 MEQ in DEXTROSE 5%-0.45% NACL 850 ML IV ×2 (13:02→23:39)
[2017-03-23] MEDS ORDERED: PHENYLephrine 20MG IN 250 ML 250 ML IV (13:30)
[2017-03-23] MEDS: ALBUMIN HUMAN 25% 100 ML IV (13:58)
[2017-03-23] MEDS: FUROSEMIDE 40 MG INJ IV (15:30)
[2017-03-23] MEDS: AMIKACIN IVPB (16:00)
[2017-03-23] MEDS: DEXTROSE 5% IVPB (16:00)
[2017-03-23 17:21] LABS: AADO2 Arterial 111.5 mmHg (7.0-24.0); Allen Test ACCEPTAB; Arterial Base Excess -10.2 mmol/L (-3.0-3); Arterial Blood Gas Oxygen Sat 91.2 mmHG (95.0-98.0); Arterial COHb 0.3 % (0.0-3.0); Arterial Fraction of Oxyhgb 90.7 % (93.0-99.0); Arterial HCO3 11.5 mmol/L (22.0-26.0); Arterial MetHb 0.2 % (0.0-1.5); Arterial Total Hemglobin 12.9 g/dl (12.0-18.0); Arterial pCO2 17.5 mmhg (35-45); MODE NASAL CANNULA; Site Left Radial
[2017-03-23 17:50] LABS: ANION GAP 23 (8-16); BLOOD UREA NITROGEN 8 mg/dl (7-20); CALCIUM 7.4 mg/dl (8.4-10.2); CARBON DIOXIDE 13 mmol/L (21-31); CHLORIDE 106 mmol/L (97-110); GLUCOSE 199 mg/dl (70-220); POTASSIUM 4.3 mmol/L (3.5-5.1); SODIUM 138 mmol/L (135-144)
[2017-03-23] MEDS: ACETAMINOPHEN 650MG/20.3ML CUP GTB (19:43)
[2017-03-23 22:26] LABS: ALANINE AMINOTRANSFERASE 95 IU/L (13-69); ALBUMIN 2.6 g/dl (3.3-4.9); ALBUMIN/GLOBULIN RATIO 0.81; ALKALINE PHOSPHATASE 130 IU/L (42-121); ANION GAP 23 (8-16); BLOOD UREA NITROGEN 9 mg/dl (7-20); CALCIUM 7.3 mg/dl (8.4-10.2); CARBON DIOXIDE 12 mmol/L (21-31); CHLORIDE 105 mmol/L (97-110); CREATININE 1.25 mg/dl (0.44-1.00); GLUCOSE 226 mg/dl (70-220); POTASSIUM 4.7 mmol/L (3.5-5.1); SODIUM 135 mmol/L (135-144); TOTAL PROTEIN 5.8 g/dl (6.1-8.1)
[2017-03-23 22:34] LABS: ASPARTATE AMINO TRANSFERASE 442 IU/L (15-46)
[2017-03-23] MEDS: PHENYLephrine 40 MG in DEXTROSE 5% 496 ML IV (23:33)
[2017-03-24] MEDS: morphine 2 MG INJ IV ×2 (03:21→10:57)
[2017-03-24] MEDS ORDERED: PHENYLephrine 20MG IN 250 ML 250 ML (04:31)
[2017-03-24] MEDS: PHENYLephrine 40 MG in DEXTROSE 5% 496 ML IV ×2 (05:24→09:27)
[2017-03-24 05:50] LABS: WHITE BLOOD COUNT 36.4 10^3/ul (4.8-10.8)
[2017-03-24 05:50] LABS: ABNORMAL IP MESSAGE 1; HEMATOCRIT 24.8 % (37.0-47.0); HEMOGLOBIN 8.3 g/dl (12.0-16.0); MEAN CORPUSCULAR HEMOGLOBIN 29.5 pg (29.0-33.0); MEAN CORPUSCULAR HGB CONC 33.5 g/dl (32.0-37.0); MEAN CORPUSCULAR VOLUME 88.3 fl (82.0-101.0); MEAN PLATELET VOLUME 9.1 fl (7.4-10.4); PLATELET COUNT 590 10^3/UL (140-415); RED BLOOD COUNT 2.81 10^6/ul (4.20-5.40); RED CELL DISTRIBUTION WIDTH 16.1 % (11.5-14.5)
[2017-03-24] MEDS: metroNIDAZOLE 500 MG/NS (PMX) 100 ML IVPB ×3 (06:04→22:03)
[2017-03-24 06:24] LABS: LACTIC ACID 11.6 mmol/L (0.5-2.0)
[2017-03-24 06:34] LABS: ANION GAP 26 (8-16); BLOOD UREA NITROGEN 12 mg/dl (7-20); CALCIUM 7.4 mg/dl (8.4-10.2); CARBON DIOXIDE 16 mmol/L (21-31); CHLORIDE 102 mmol/L (97-110); CREATININE 1.23 mg/dl (0.44-1.00); GLUCOSE 278 mg/dl (70-220); MAGNESIUM 1.9 mg/dl (1.7-2.5); PHOSPHORUS 4.7 mg/dl (2.5-4.9); SODIUM 140 mmol/L (135-144)
[2017-03-24 07:06] LABS: ADD MAN DIFF? YES; POSITIVE DIFF @See below
[2017-03-24 08:19] LABS: AADO2 Arterial 135.9 mmHg (7.0-24.0); Allen Test ACCEPTAB; Arterial Blood Gas Oxygen Sat 94.3 mmHG (95.0-98.0); Arterial COHb 0.3 % (0.0-3.0); Arterial Fraction of Oxyhgb 93.9 % (93.0-99.0); Arterial HCO3 18.1 mmol/L (22.0-26.0); Arterial MetHb 0.1 % (0.0-1.5); Arterial Total Hemglobin 9.4 g/dl (12.0-18.0); Arterial pCO2 23.9 mmhg (35-45); MODE NASAL CANNULA; Site Left Radial
[2017-03-24] MEDS: ESCITALOPRAM 10 MG TAB GTB (08:26)
[2017-03-24] MEDS: TOPIRAMATE 100 MG TAB GTB ×2 (08:27→20:23)
[2017-03-24] MEDS: METOPROLOL 25 MG TAB GTB ×2 (08:27→20:24)
[2017-03-24] MEDS: ASPIRIN 325 MG TAB PO (08:27)
[2017-03-24] MEDS: MULTIVITAMINS THERAPEUTIC TAB GTB (08:27)
[2017-03-24] MEDS: LANSOPRAZOLE 30 MG CAP GTB (08:27)
[2017-03-24] MEDS: DOCUSATE SODIUM 10 MG/ML (10ML CUP) PO ×2 (08:28→20:23)
[2017-03-24] MEDS: FLUCONAZOLE 100 MG TAB PO (08:45)
[2017-03-24] MEDS: SODIUM BICARBONATE (IV ADD) 150 MEQ in DEXTROSE 5%-0.45% NACL 850 ML IV ×2 (08:45→18:23)
[2017-03-24] MEDS: LINEZOLID 600 MG/D5W (PMX) 300 ML IVPB ×2 (08:45→20:23)
[2017-03-24] MEDS: PHENYTOIN (100 MG/4 ML) CUP GTB ×3 (08:45→20:22)
[2017-03-24] MEDS: FAMOTIDINE 20 MG INJ IV (08:45)
[2017-03-24] MEDS ORDERED: ALBUMIN HUMAN 5% 0 ML (08:56)
[2017-03-24] MEDS ORDERED: ALBUMIN HUMAN 25% 100 ML (08:57)
[2017-03-24] MEDS ORDERED: ALBUMIN HUMAN 25% 100 ML IV (09:00)
[2017-03-24] MEDS: ENOXAPARIN 40 MG/0.4 ML SYG SC (09:28)
[2017-03-24] MEDS ORDERED: NORepinephrine 32 MG in DEXTROSE 5% 218 ML IV (10:00)
[2017-03-24] MEDS: DIGOXIN 500 MCG INJ IV (10:52)
[2017-03-24] MEDS: AMIODARONE 150MG/D5W BOLUS 100 ML IV (11:21)
[2017-03-24] MEDS: PHENYLephrine 80 MG in DEXTROSE 5% 242 ML IV ×3 (11:30→21:00)
[2017-03-24 12:15] LABS: ANISOCYTOSIS 1+ (0-0); BAND NEUTROPHILS #M 10.9 10^3/ul (0.0-0.6); BAND NEUTROPHILS % (M) 30 % (0-4); BURR CELLS 2+ (0-0); EOSINOPHILS % (M) 1 % (0-7); LYMPHOCYTES #M 1.4 10^3/ul (0.8-2.9); LYMPHOCYTES % (M) 4 % (15-51); MONOCYTE #M 0.7 10^3/ul (0.3-0.9); MONOCYTES % (M) 2 % (0-11); PLATELET ESTIMATE INCREASED; POIKILOCYTOSIS 1+ (0-0); POLYCHROMASIA 1+ (0-0); SEG NEUT #M 26.9 10^3/ul (1.7-7.5); SEGMENTED NEUTROPHILS (M) % 63 % (39-77); SMUDGE%M 1 % (0-0)
[2017-03-24] MEDS: AMIODARONE 900 MG in DEXTROSE 5% 482 ML IV (12:15)
[2017-03-24] MEDS ORDERED: DEXTROSE 50% 50 ML SYRINGE IV ×2 (12:30)
[2017-03-24] MEDS ORDERED: GLUCOSE GEL 15 GRAM TUBE PO ×2 (12:30)
[2017-03-24] MEDS ORDERED: GLUCAGON 1 MG INJ IM (12:30)
[2017-03-24] MEDS ORDERED: GLUCOSE GEL 15 GRAM TUBE BUCCAL (12:30)
[2017-03-24] MEDS: INSULIN ASPART [NOVOLOG] 3 ML PEN SC ×3 (13:41→20:51)
[2017-03-24] MEDS ORDERED: SOD CHLORIDE 0.9% IVPB (14:00)
[2017-03-24] MEDS ORDERED: AMIKACIN IVPB (14:00)
[2017-03-24] MEDS: DEXTROSE 5% IVPB (15:43)
[2017-03-24] MEDS: AMIKACIN IVPB (15:43)
[2017-03-25] MEDS: ONDANSETRON 4 MG INJ IV (00:35)
[2017-03-25] MEDS: INSULIN ASPART [NOVOLOG] 3 ML PEN SC ×6 (00:39→21:00)
[2017-03-25] MEDS: ACCU-CHEK XX (02:00)
[2017-03-25] MEDS: PHENYLephrine 80 MG in DEXTROSE 5% 242 ML IV (03:21)
[2017-03-25] MEDS: metroNIDAZOLE 500 MG/NS (PMX) 100 ML IVPB ×3 (05:20→21:35)
[2017-03-25 05:33] LABS: ADD MAN DIFF? NO
[2017-03-25 05:35] LABS: ABNORMAL IP MESSAGE 1; BASOPHIL # 0.1 10^3/ul (0.0-0.1); BASOPHILS % 0.2 % (0.0-2.0); HEMATOCRIT 21.5 % (37.0-47.0); HEMOGLOBIN 7.3 g/dl (12.0-16.0); LYMPHOCYTES # 1.5 10^3/ul (0.8-2.9); LYMPHOCYTES % 4.2 % (15.0-51.0); MEAN CORPUSCULAR HEMOGLOBIN 30.2 pg (29.0-33.0); MEAN CORPUSCULAR VOLUME 88.8 fl (82.0-101.0); MONOCYTE # 0.7 10^3/ul (0.3-0.9); NEUTROPHIL # 32.7 10^3/ul (1.6-7.5); NEUTROPHILS % 91.8 % (39.0-77.0); PLATELET COUNT 304 10^3/UL (140-415); RED BLOOD COUNT 2.42 10^6/ul (4.20-5.40); RED CELL DISTRIBUTION WIDTH 16.1 % (11.5-14.5)
[2017-03-25 05:35] LABS: WHITE BLOOD COUNT 35.7 10^3/ul (4.8-10.8)
[2017-03-25 05:46] LABS: POSITIVE DIFF @See below
[2017-03-25 06:08] LABS: AMYLASE 83 U/L (11-123); ANION GAP 15 (8-16); BLOOD UREA NITROGEN 11 mg/dl (7-20); CALCIUM 7.1 mg/dl (8.4-10.2); CARBON DIOXIDE 32 mmol/L (21-31); CHLORIDE 95 mmol/L (97-110); CREATININE 0.83 mg/dl (0.44-1.00); GLUCOSE 132 mg/dl (70-220); LIPASE 171 U/L (23-300); SODIUM 140 mmol/L (135-144)
[2017-03-25 06:19] LABS: POTASSIUM 2.4 mmol/L (3.5-5.1)
[2017-03-25] MEDS: SOD CHLORIDE 0.9% 500 ML IV (07:23)
[2017-03-25 07:44] LABS: MAGNESIUM 1.9 mg/dl (1.7-2.5)
[2017-03-25] MEDS: SODIUM BICARBONATE (IV ADD) 150 MEQ in DEXTROSE 5%-0.45% NACL 850 ML IV ×3 (07:55→19:58)
[2017-03-25] MEDS: AMIODARONE 900 MG in DEXTROSE 5% 482 ML IV (07:57)
[2017-03-25] MEDS: POTASSIUM CHLORIDE 50 ML IVPB ×4 (08:00→14:16)
[2017-03-25] MEDS: ENOXAPARIN 40 MG/0.4 ML SYG SC (09:00)
[2017-03-25] MEDS: ASPIRIN 325 MG TAB PO (10:13)
[2017-03-25] MEDS: LANSOPRAZOLE 30 MG CAP GTB (10:13)
[2017-03-25] MEDS: DOCUSATE SODIUM 10 MG/ML (10ML CUP) PO ×2 (10:13→20:58)
[2017-03-25] MEDS: MULTIVITAMINS THERAPEUTIC TAB GTB (10:14)
[2017-03-25] MEDS: ESCITALOPRAM 10 MG TAB GTB (10:14)
[2017-03-25] MEDS: FLUCONAZOLE 100 MG TAB PO (10:14)
[2017-03-25] MEDS: TOPIRAMATE 100 MG TAB GTB ×2 (10:15→20:58)
[2017-03-25] MEDS: METOPROLOL 25 MG TAB GTB ×2 (10:15→21:00)
[2017-03-25] MEDS: FAMOTIDINE 20 MG INJ IV (10:16)
[2017-03-25] MEDS: PHENYTOIN (100 MG/4 ML) CUP GTB ×3 (10:16→20:58)
[2017-03-25] MEDS: LINEZOLID 600 MG/D5W (PMX) 300 ML IVPB (10:17)
[2017-03-25 10:46] LABS: AADO2 Arterial 87.1 mmHg (7.0-24.0); Allen Test ACCEPTAB; Arterial Base Excess 10.8 mmol/L (-3.0-3); Arterial Blood Gas Oxygen Sat 94.3 mmHG (95.0-98.0); Arterial COHb 0.3 % (0.0-3.0); Arterial Fraction of Oxyhgb 93.5 % (93.0-99.0); Arterial HCO3 33.8 mmol/L (22.0-26.0); Arterial MetHb 0.5 % (0.0-1.5); Arterial Total Hemglobin 5.8 g/dl (12.0-18.0); Arterial pCO2 37.2 mmhg (35-45); MODE NASAL CANNULA; Site Right Radial
[2017-03-25] MEDS: MAGNESIUM SULFATE 2 GM/50 ML 50 ML IVPB (14:16)
[2017-03-25] MEDS: TIGECYCLINE 100 MG in DEXTROSE 5% 100 ML IVPB (17:42)
[2017-03-25] MEDS ORDERED: SODIUM BICARBONATE (IV ADD) 50 MEQ in SOD CHLORIDE 0.45% 1,000 ML IV (18:00)
[2017-03-25] MEDS ORDERED: SODIUM BICARBONATE (IV ADD) 150 MEQ in DEXTROSE 5% 850 ML IV (18:00)
[2017-03-25 19:04] LABS: ADD MAN DIFF? NO
[2017-03-25 19:08] LABS: ABNORMAL IP MESSAGE 1; BASOPHILS % 0.2 % (0.0-2.0); HEMATOCRIT 21.1 % (37.0-47.0); LYMPHOCYTES # 1.5 10^3/ul (0.8-2.9); LYMPHOCYTES % 5.7 % (15.0-51.0); MEAN CORPUSCULAR HGB CONC 33.2 g/dl (32.0-37.0); MEAN CORPUSCULAR VOLUME 90.6 fl (82.0-101.0); MEAN PLATELET VOLUME 9.1 fl (7.4-10.4); MONOCYTE # 0.5 10^3/ul (0.3-0.9); NEUTROPHIL # 23.4 10^3/ul (1.6-7.5); NEUTROPHILS % 90.1 % (39.0-77.0); PLATELET COUNT 233 10^3/UL (140-415); RED BLOOD COUNT 2.33 10^6/ul (4.20-5.40); RED CELL DISTRIBUTION WIDTH 16.3 % (11.5-14.5)
[2017-03-25 19:24] LABS: POSITIVE DIFF @See below
[2017-03-26] MEDS: TIGECYCLINE 50 MG in SOD CHLORIDE 0.9% 100 ML IVPB ×3 (01:33→20:02)
[2017-03-26] MEDS: INSULIN ASPART [NOVOLOG] 3 ML PEN SC ×6 (01:43→20:09)
[2017-03-26] MEDS: ACCU-CHEK XX (02:00)
[2017-03-26] MEDS: SODIUM BICARBONATE (IV ADD) 150 MEQ in DEXTROSE 5%-0.45% NACL 850 ML IV (05:44)
[2017-03-26] MEDS: metroNIDAZOLE 500 MG/NS (PMX) 100 ML IVPB ×3 (05:48→22:08)
[2017-03-26 06:43] LABS: ADD MAN DIFF? NO
[2017-03-26 06:53] LABS: ABNORMAL IP MESSAGE 1; BASOPHILS % 0.2 % (0.0-2.0); HEMATOCRIT 21.7 % (37.0-47.0); HEMOGLOBIN 7.1 g/dl (12.0-16.0); LYMPHOCYTES # 1.6 10^3/ul (0.8-2.9); LYMPHOCYTES % 6.5 % (15.0-51.0); MEAN CORPUSCULAR HEMOGLOBIN 29.6 pg (29.0-33.0); MEAN CORPUSCULAR HGB CONC 32.7 g/dl (32.0-37.0); MEAN CORPUSCULAR VOLUME 90.4 fl (82.0-101.0); MEAN PLATELET VOLUME 9.3 fl (7.4-10.4); MONOCYTE # 0.5 10^3/ul (0.3-0.9); MONOCYTES % 2.1 % (0.0-11.0); NEUTROPHIL # 21.6 10^3/ul (1.6-7.5); NEUTROPHILS % 89.7 % (39.0-77.0); PLATELET COUNT 246 10^3/UL (140-415); RED CELL DISTRIBUTION WIDTH 16.3 % (11.5-14.5)
[2017-03-26 06:53] LABS: WHITE BLOOD COUNT 24.1 10^3/ul (4.8-10.8)
[2017-03-26 07:09] LABS: MAGNESIUM 2.3 mg/dl (1.7-2.5)
[2017-03-26 07:09] LABS: PHOSPHORUS 3.8 mg/dl (2.5-4.9)
[2017-03-26 07:10] LABS: POSITIVE DIFF @See below
[2017-03-26 07:17] LABS: ALANINE AMINOTRANSFERASE 215 IU/L (13-69); ALBUMIN 2.4 g/dl (3.3-4.9); ALBUMIN/GLOBULIN RATIO 0.75; ALKALINE PHOSPHATASE 122 IU/L (42-121); ANION GAP 16 (8-16); ASPARTATE AMINO TRANSFERASE 475 IU/L (15-46); BILIRUBIN,INDIRECT 0.1 mg/dl (0-1.1); BILIRUBIN,TOTAL 0.1 mg/dl (0.2-1.3); BLOOD UREA NITROGEN 15 mg/dl (7-20); CALCIUM 7.3 mg/dl (8.4-10.2); CARBON DIOXIDE 31 mmol/L (21-31); CHLORIDE 99 mmol/L (97-110); CREATININE 0.82 mg/dl (0.44-1.00); GLUCOSE 142 mg/dl (70-220); SODIUM 143 mmol/L (135-144); TOTAL PROTEIN 5.6 g/dl (6.1-8.1)
[2017-03-26] MEDS: TOPIRAMATE 100 MG TAB GTB ×2 (08:52→20:01)
[2017-03-26] MEDS: PHENYTOIN (100 MG/4 ML) CUP GTB ×3 (08:52→20:02)
[2017-03-26] MEDS: ASPIRIN 325 MG TAB PO (08:52)
[2017-03-26] MEDS: METOPROLOL 25 MG TAB GTB ×2 (08:52→20:01)
[2017-03-26] MEDS: AMIODARONE 200 MG TAB GTB ×2 (08:52→17:43)
[2017-03-26] MEDS: MULTIVITAMINS THERAPEUTIC TAB GTB (08:53)
[2017-03-26] MEDS: ESCITALOPRAM 10 MG TAB GTB (08:53)
[2017-03-26] MEDS: FLUCONAZOLE 100 MG TAB PO (08:53)
[2017-03-26] MEDS: DOCUSATE SODIUM 10 MG/ML (10ML CUP) PO ×2 (08:53→20:02)
[2017-03-26] MEDS: LANSOPRAZOLE 30 MG CAP GTB (08:53)
[2017-03-26] MEDS: FAMOTIDINE 20 MG INJ IV (08:53)
[2017-03-26] MEDS: POTASSIUM CHLORIDE 50 ML IVPB ×3 (15:25→17:44)
[2017-03-27] MEDS: INSULIN ASPART [NOVOLOG] 3 ML PEN SC ×5 (01:00→18:05)
[2017-03-27] MEDS: ACCU-CHEK XX (01:50)
[2017-03-27] MEDS: metroNIDAZOLE 500 MG/NS (PMX) 100 ML IVPB ×3 (05:46→22:01)
[2017-03-27 07:23] LABS: WHITE BLOOD COUNT 18.1 10^3/ul (4.8-10.8)
[2017-03-27 07:23] LABS: ABNORMAL IP MESSAGE 1; HEMATOCRIT 21.8 % (37.0-47.0); MEAN CORPUSCULAR HEMOGLOBIN 29.4 pg (29.0-33.0); MEAN CORPUSCULAR HGB CONC 31.7 g/dl (32.0-37.0); MEAN CORPUSCULAR VOLUME 92.8 fl (82.0-101.0); MEAN PLATELET VOLUME 10.3 fl (7.4-10.4); PLATELET COUNT 187 10^3/UL (140-415); RED BLOOD COUNT 2.35 10^6/ul (4.20-5.40); RED CELL DISTRIBUTION WIDTH 16.8 % (11.5-14.5)
[2017-03-27 07:24] LABS: POSITIVE DIFF @See below
[2017-03-27 07:26] LABS: HEMOGLOBIN 6.9 g/dl (12.0-16.0)
[2017-03-27 07:27] LABS: ADD MAN DIFF? YES; PATH REVIEW? YES
[2017-03-27 07:30] LABS: ALANINE AMINOTRANSFERASE 139 IU/L (13-69); ALBUMIN 2.3 g/dl (3.3-4.9); ALBUMIN/GLOBULIN RATIO 0.65; ALKALINE PHOSPHATASE 192 IU/L (42-121); ANION GAP 17 (8-16); ASPARTATE AMINO TRANSFERASE 160 IU/L (15-46); BILIRUBIN,INDIRECT 0.3 mg/dl (0-1.1); BLOOD UREA NITROGEN 18 mg/dl (7-20); CALCIUM 7.2 mg/dl (8.4-10.2); CARBON DIOXIDE 29 mmol/L (21-31); CHLORIDE 105 mmol/L (97-110); CREATININE 0.81 mg/dl (0.44-1.00); GLUCOSE 111 mg/dl (70-220); MAGNESIUM 2.1 mg/dl (1.7-2.5); PHOSPHORUS 4.4 mg/dl (2.5-4.9); POTASSIUM 3.1 mmol/L (3.5-5.1); SODIUM 148 mmol/L (135-144); TOTAL PROTEIN 5.8 g/dl (6.1-8.1)
[2017-03-27] MEDS: DOCUSATE SODIUM 10 MG/ML (10ML CUP) PO ×2 (08:46→22:02)
[2017-03-27] MEDS: ESCITALOPRAM 10 MG TAB GTB (08:46)
[2017-03-27] MEDS: ASPIRIN 325 MG TAB PO (08:46)
[2017-03-27] MEDS: TOPIRAMATE 100 MG TAB GTB ×2 (08:47→22:02)
[2017-03-27] MEDS: METOPROLOL 25 MG TAB GTB ×2 (08:47→22:03)
[2017-03-27] MEDS: FLUCONAZOLE 100 MG TAB PO (08:47)
[2017-03-27] MEDS: MULTIVITAMINS THERAPEUTIC TAB GTB (08:47)
[2017-03-27] MEDS: PHENYTOIN (100 MG/4 ML) CUP GTB ×3 (08:48→22:02)
[2017-03-27] MEDS: AMIODARONE 200 MG TAB GTB ×2 (08:48→22:03)
[2017-03-27] MEDS: TIGECYCLINE 50 MG in SOD CHLORIDE 0.9% 100 ML IVPB ×2 (08:49→23:59)
[2017-03-27] MEDS: FAMOTIDINE 20 MG INJ IV (08:54)
[2017-03-27] MEDS: LANSOPRAZOLE 30 MG CAP GTB (09:11)
[2017-03-27 09:32] LABS: ANISOCYTOSIS 1+ (0-0); BAND NEUTROPHILS #M 0.3 10^3/ul (0.0-0.6); BAND NEUTROPHILS % (M) 2 % (0-4); LYMPHOCYTES #M 1.4 10^3/ul (0.8-2.9); LYMPHOCYTES % (M) 8 % (15-51); MONOCYTE #M 0.5 10^3/ul (0.3-0.9); MONOCYTES % (M) 3 % (0-11); PLATELET ESTIMATE NORMAL; SEG NEUT #M 15.8 10^3/ul (1.7-7.5); SEGMENTED NEUTROPHILS (M) % 87 % (39-77)
[2017-03-27] MEDS: SOD CHLORIDE 0.9% 250 ML IV* (10:24)
[2017-03-27] MEDS: DEXTROSE 5% 1,000 ML IV (10:34)
[2017-03-27] MEDS: POTASSIUM CHLORIDE 50 ML IVPB ×2 (11:09→11:13)
[2017-03-27 12:00] LABS: IMMEDIATE SPIN CROSSMATCH 1 1
[2017-03-27] MEDS: POTASSIUM CHLORIDE 20 MEQ POWDER FOR ORAL SOLN NGT (18:02)
[2017-03-27] MEDS ORDERED: INSULIN ASPART [NOVOLOG] 3 ML PEN SC (21:00)
[2017-03-27] MEDS: Insulin NOVOLOG SS MILD Algorithm (SS with meals and bedtime) SC (21:00)
[2017-03-28] MEDS: ACCUCHECK AT 2AM (Patients on SS coverage) XX (02:00)
[2017-03-28] MEDS: metroNIDAZOLE 500 MG/NS (PMX) 100 ML IVPB ×2 (06:03→13:31)
[2017-03-28] MEDS: DEXTROSE 5%-0.45% NACL 1,000 ML IV ×2 (06:04→11:30)
[2017-03-28] MEDS: Insulin NOVOLOG SS MILD Algorithm (SS with meals and bedtime) SC ×4 (07:25→21:00)
[2017-03-28 07:53] LABS: ADD MAN DIFF? NO
[2017-03-28 07:57] LABS: WHITE BLOOD COUNT 16.4 10^3/ul (4.8-10.8)
[2017-03-28 07:57] LABS: BASOPHILS % 0.1 % (0.0-2.0); EOSINOPHILS # 0.1 10^3/ul (0.0-0.5); EOSINOPHILS % 0.3 % (0.0-7.0); HEMATOCRIT 24.4 % (37.0-47.0); HEMOGLOBIN 7.9 g/dl (12.0-16.0); LYMPHOCYTES # 1.7 10^3/ul (0.8-2.9); LYMPHOCYTES % 10.5 % (15.0-51.0); MEAN CORPUSCULAR HEMOGLOBIN 29.2 pg (29.0-33.0); MEAN CORPUSCULAR HGB CONC 32.4 g/dl (32.0-37.0); MEAN PLATELET VOLUME 9.7 fl (7.4-10.4); MONOCYTES % 6.3 % (0.0-11.0); NEUTROPHIL # 13.3 10^3/ul (1.6-7.5); NEUTROPHILS % 81.3 % (39.0-77.0); PLATELET COUNT 190 10^3/UL (140-415); RED BLOOD COUNT 2.71 10^6/ul (4.20-5.40); RED CELL DISTRIBUTION WIDTH 16.7 % (11.5-14.5)
[2017-03-28 08:17] LABS: ANION GAP 15 (8-16); BLOOD UREA NITROGEN 15 mg/dl (7-20); CALCIUM 7.2 mg/dl (8.4-10.2); CARBON DIOXIDE 21 mmol/L (21-31); CHLORIDE 111 mmol/L (97-110); CREATININE 0.63 mg/dl (0.44-1.00); GLUCOSE 112 mg/dl (70-220); MAGNESIUM 1.8 mg/dl (1.7-2.5); PHOSPHORUS 3.6 mg/dl (2.5-4.9); SODIUM 144 mmol/L (135-144)
[2017-03-28] MEDS: ASPIRIN 325 MG TAB PO (09:11)
[2017-03-28] MEDS: AMIODARONE 200 MG TAB GTB ×2 (09:11→21:17)
[2017-03-28] MEDS: TOPIRAMATE 100 MG TAB GTB ×2 (09:11→21:18)
[2017-03-28] MEDS: ESCITALOPRAM 10 MG TAB GTB (09:11)
[2017-03-28] MEDS: DOCUSATE SODIUM 10 MG/ML (10ML CUP) PO ×2 (09:11→21:16)
[2017-03-28] MEDS: MULTIVITAMINS THERAPEUTIC TAB GTB (09:12)
[2017-03-28] MEDS: LANSOPRAZOLE 30 MG CAP GTB (09:12)
[2017-03-28] MEDS: FLUCONAZOLE 100 MG TAB PO (09:12)
[2017-03-28] MEDS: TIGECYCLINE 50 MG in SOD CHLORIDE 0.9% 100 ML IVPB ×2 (09:12→21:23)
[2017-03-28] MEDS: METOPROLOL 25 MG TAB GTB ×2 (09:12→21:18)
[2017-03-28] MEDS: PHENYTOIN (100 MG/4 ML) CUP GTB ×3 (09:13→21:17)
[2017-03-28] MEDS: FAMOTIDINE 20 MG INJ IV (09:22)
[2017-03-28] MEDS ORDERED: POTASSIUM CHLORIDE 20 MEQ in DEXTROSE 5% 100 ML IVPB (11:30)
[2017-03-28] MEDS: AMIKACIN IVPB (12:17)
[2017-03-28] MEDS: POTASSIUM CHLORIDE 20 MEQ POWDER FOR ORAL SOLN GTB (12:17)
[2017-03-28] MEDS: DEXTROSE 5% IVPB (12:17)
[2017-03-28] MEDS: POTASSIUM CHLORIDE 50 ML IVPB ×2 (13:31→14:50)
[2017-03-28] MEDS: LORAZEPAM 1 MG TAB GTB (13:56)
[2017-03-28] MEDS: POTASSIUM CHLORIDE 20 MEQ POWDER FOR ORAL SOLN PO (16:15)
[2017-03-28] MEDS: MAGNESIUM SULFATE 3 GM in DEXTROSE 5% 100 ML IVPB (16:15)
[2017-03-29] MEDS: ACCUCHECK AT 2AM (Patients on SS coverage) XX (02:00)
[2017-03-29 08:16] LABS: ADD MAN DIFF? NO
[2017-03-29 08:21] LABS: ABNORMAL IP MESSAGE 1; BASOPHILS % 0.2 % (0.0-2.0); EOSINOPHILS # 0.1 10^3/ul (0.0-0.5); EOSINOPHILS % 0.4 % (0.0-7.0); HEMATOCRIT 26.5 % (37.0-47.0); HEMOGLOBIN 8.5 g/dl (12.0-16.0); LYMPHOCYTES # 2.5 10^3/ul (0.8-2.9); LYMPHOCYTES % 12.8 % (15.0-51.0); MEAN CORPUSCULAR HEMOGLOBIN 29.1 pg (29.0-33.0); MEAN CORPUSCULAR HGB CONC 32.1 g/dl (32.0-37.0); MEAN CORPUSCULAR VOLUME 90.8 fl (82.0-101.0); MEAN PLATELET VOLUME 10.1 fl (7.4-10.4); MONOCYTE # 1.7 10^3/ul (0.3-0.9); MONOCYTES % 8.6 % (0.0-11.0); NEUTROPHIL # 14.5 10^3/ul (1.6-7.5); PLATELET COUNT 232 10^3/UL (140-415); RED BLOOD COUNT 2.92 10^6/ul (4.20-5.40); RED CELL DISTRIBUTION WIDTH 16.9 % (11.5-14.5)
[2017-03-29 08:21] LABS: WHITE BLOOD COUNT 19.2 10^3/ul (4.8-10.8)
[2017-03-29 08:26] LABS: POSITIVE DIFF @See below
[2017-03-29 08:56] LABS: ANION GAP 14 (8-16); BLOOD UREA NITROGEN 12 mg/dl (7-20); CALCIUM 7.3 mg/dl (8.4-10.2); CARBON DIOXIDE 17 mmol/L (21-31); CHLORIDE 113 mmol/L (97-110); CREATININE 0.52 mg/dl (0.44-1.00); GLUCOSE 122 mg/dl (70-220); SODIUM 140 mmol/L (135-144)
[2017-03-29] MEDS ORDERED: LORAZEPAM 2 MG INJ (10:06)
[2017-03-29] MEDS: PHENYTOIN (100 MG/4 ML) CUP GTB ×2 (10:09→12:43)
[2017-03-29] MEDS: DOCUSATE SODIUM 10 MG/ML (10ML CUP) PO (10:10)
[2017-03-29] MEDS: TIGECYCLINE 50 MG in SOD CHLORIDE 0.9% 100 ML IVPB (10:10)
[2017-03-29] MEDS: METOPROLOL 25 MG TAB GTB (10:11)
[2017-03-29] MEDS: FAMOTIDINE 20 MG INJ IV (10:12)
[2017-03-29] MEDS: ASPIRIN 325 MG TAB PO (10:12)
[2017-03-29] MEDS: LANSOPRAZOLE 30 MG CAP GTB (10:12)
[2017-03-29] MEDS: MULTIVITAMINS THERAPEUTIC TAB GTB (10:13)
[2017-03-29] MEDS: TOPIRAMATE 100 MG TAB GTB (10:13)
[2017-03-29] MEDS: AMIODARONE 200 MG TAB GTB (10:14)
[2017-03-29] MEDS: ESCITALOPRAM 10 MG TAB GTB (10:14)
[2017-03-29] MEDS ORDERED: LORAZEPAM 2 MG INJ IV (10:30)
[2017-03-29] MEDS ORDERED: INSULIN ASPART [NOVOLOG] 3 ML PEN SC (12:00)
[2017-03-29] MEDS: Insulin NOVOLOG SS MILD Algorithm (NPO/TPN/ENTERAL FEEDS) SC ×2 (12:00→19:07)
[2017-03-29] MEDS: AMIKACIN IVPB (12:17)
[2017-03-29] MEDS: DEXTROSE 5% IVPB (12:17)
[2017-03-29] MEDS ORDERED: DEXTROSE 5% IVPB (16:00)
[2017-03-29] MEDS ORDERED: metroNIDAZOLE 500 MG/NS (PMX) 100 ML IVPB (16:00)
[2017-03-29] MEDS ORDERED: FLUCONAZOLE 100 MG TAB PO (16:00)
[2017-03-29] MEDS ORDERED: AMIKACIN IVPB (16:00)
[2017-03-29 16:10] LABS: AADO2 Arterial 28.5 mmHg (7.0-24.0); Allen Test ACCEPTAB; Arterial Blood Gas Oxygen Sat 96.1 mmHG (95.0-98.0); Arterial COHb 0.2 % (0.0-3.0); Arterial Fraction of Oxyhgb 95.8 % (93.0-99.0); Arterial HCO3 16.1 mmol/L (22.0-26.0); Arterial MetHb 0.1 % (0.0-1.5); Arterial Total Hemglobin 11.2 g/dl (12.0-18.0); Arterial pCO2 28.8 mmhg (35-45); MODE ROOM AIR; Site Right Radial
[2017-03-29] MEDS: ONDANSETRON 4 MG INJ IV (16:20)
[2017-03-29 17:29] LABS: ADD MAN DIFF? NO
[2017-03-29] MEDS ORDERED: BARIUM SULF 2% 450 ML BTL (BERRY SMOOTHIE) PO (17:30)
[2017-03-29 17:33] LABS: ABNORMAL IP MESSAGE 1; BASOPHIL # 0.1 10^3/ul (0.0-0.1); BASOPHILS % 0.3 % (0.0-2.0); EOSINOPHILS % 0.2 % (0.0-7.0); HEMATOCRIT 30.7 % (37.0-47.0); HEMOGLOBIN 9.9 g/dl (12.0-16.0); LYMPHOCYTES % 8.2 % (15.0-51.0); MEAN CORPUSCULAR HEMOGLOBIN 29.7 pg (29.0-33.0); MEAN CORPUSCULAR HGB CONC 32.2 g/dl (32.0-37.0); MEAN CORPUSCULAR VOLUME 92.2 fl (82.0-101.0); MEAN PLATELET VOLUME 10.1 fl (7.4-10.4); MONOCYTE # 1.8 10^3/ul (0.3-0.9); MONOCYTES % 7.5 % (0.0-11.0); NEUTROPHIL # 19.5 10^3/ul (1.6-7.5); NEUTROPHILS % 81.3 % (39.0-77.0); PLATELET COUNT 280 10^3/UL (140-415); RED BLOOD COUNT 3.33 10^6/ul (4.20-5.40)
[2017-03-29 17:37] LABS: POSITIVE DIFF @See below
[2017-03-29 18:07] LABS: INR 1.44; PROTIME 17.8 Sec (11.9-14.9); PT RATIO 1.4
[2017-03-29 18:10] LABS: LACTIC ACID 1.7 mmol/L (0.5-2.0)
[2017-03-29 18:11] LABS: ALANINE AMINOTRANSFERASE 68 IU/L (13-69); ALBUMIN 2.6 g/dl (3.3-4.9); ALBUMIN/GLOBULIN RATIO 0.61; ALKALINE PHOSPHATASE 288 IU/L (42-121); ANION GAP 18 (8-16); ASPARTATE AMINO TRANSFERASE 43 IU/L (15-46); BILIRUBIN,INDIRECT 0.4 mg/dl (0-1.1); BILIRUBIN,TOTAL 1.1 mg/dl (0.2-1.3); BLOOD UREA NITROGEN 14 mg/dl (7-20); CALCIUM 7.5 mg/dl (8.4-10.2); CARBON DIOXIDE 15 mmol/L (21-31); CHLORIDE 112 mmol/L (97-110); GLUCOSE 166 mg/dl (70-220); POTASSIUM 4.6 mmol/L (3.5-5.1); SODIUM 140 mmol/L (135-144); TOTAL PROTEIN 6.8 g/dl (6.1-8.1)
[2017-03-29 21:18] LABS: AADO2 Arterial 380.1 mmHg (7.0-24.0); Allen Test ACCEPTAB; Arterial Base Excess -7.8 mmol/L (-3.0-3); Arterial Blood Gas Oxygen Sat 99.5 mmHG (95.0-98.0); Arterial COHb 0.3 % (0.0-3.0); Arterial Fraction of Oxyhgb 98.8 % (93.0-99.0); Arterial HCO3 15.6 mmol/L (22.0-26.0); Arterial MetHb 0.4 % (0.0-1.5); Arterial Total Hemglobin 11.1 g/dl (12.0-18.0); Arterial pCO2 26.2 mmhg (35-45); Blood Gas IEPAP 15/5; MODE MASK - BIPAP; Site Right Radial
[2017-03-29] MEDS: morphine (DRIP) 100 MG/100 ML 100 ML IV (22:56)
[2017-03-30] MEDS: ACETAMINOPHEN 650MG/20.3ML CUP GTB (00:59)
[2017-03-30] MEDS ORDERED: ACCU-CHEK XX (02:00)
== END 2017-03-30 11:30 | disposition expired | DRG 405 ==
LOC: MS4 02-21 14:30 → MS2 02-23 01:59 → ICU 03-23 10:31 → E/R 12:26 → TEL 03-27 17:18 → MS2 15:39
PROC: 0FBG0ZZ Excision of Pancreas, Open Approach (ICD-10-PCS; principal; 2017-02-20 11:53)
PROC: 0FPB8DZ Removal of Intraluminal Device from Hepatobiliary Duct, Via Natural or Artificial Opening Endoscopic (ICD-10-PCS; 2017-02-20 11:53)
PROC: 0F7D8DZ Dilation of Pancreatic Duct with Intraluminal Device, Via Natural or Artificial Opening Endoscopic (ICD-10-PCS; 2017-02-20 11:53)
PROC: 0W2FX0Z Change Drainage Device in Abdominal Wall, External Approach (ICD-10-PCS; 2017-02-20 11:53)
PROC: 02HV33Z Insertion of Infusion Device into Superior Vena Cava, Percutaneous Approach (ICD-10-PCS; 2017-02-20 11:53)
PROC: BW11YZZ Fluoroscopy of Abdomen and Pelvis using Other Contrast (ICD-10-PCS; 2017-02-20 11:53)
PROC: 0W2FX0Z Change Drainage Device in Abdominal Wall, External Approach (ICD-10-PCS; 2017-02-20 11:53)
PROC: 06HY33Z Insertion of Infusion Device into Lower Vein, Percutaneous Approach (ICD-10-PCS; 2017-02-20 11:53)
PROC: 30233N1 Transfusion of Nonautologous Red Blood Cells into Peripheral Vein, Percutaneous Approach (ICD-10-PCS; 2017-02-20 11:53)
DX: K86.3 Pseudocyst of pancreas (principal); R65.21 Severe sepsis with septic shock; N17.0 Acute kidney failure with tubular necrosis; K65.1 Peritoneal abscess; E43 Unspecified severe protein-calorie malnutrition; A41.9 Sepsis, unspecified organism; G93.40 Encephalopathy, unspecified; R64 Cachexia; K85.82 Other acute pancreatitis with infected necrosis; E87.1 Hypo-osmolality and hyponatremia; E87.2 Acidosis; D62 Acute posthemorrhagic anemia; K56.0 Paralytic ileus; Z66 Do not resuscitate; Z68.23 Body mass index [BMI] 23.0-23.9, adult; I48.0 Paroxysmal atrial fibrillation; I10 Essential (primary) hypertension; F32.9 Major depressive disorder, single episode, unspecified; F41.9 Anxiety disorder, unspecified; G40.909 Epilepsy, unspecified, not intractable, without status epilepticus; T85.898A Other specified complication of other internal prosthetic devices, implants and grafts, initial encounter; K86.1 Other chronic pancreatitis; K21.9 Gastro-esophageal reflux disease without esophagitis; E87.6 Hypokalemia; Y83.8 Other surgical procedures as the cause of abnormal reaction of the patient, or of later complication, without mention of misadventure at the time of the procedure; Y92.89 Other specified places as the place of occurrence of the external cause; B96.89 Other specified bacterial agents as the cause of diseases classified elsewhere; B96.5 Pseudomonas (aeruginosa) (mallei) (pseudomallei) as the cause of diseases classified elsewhere; Z16.24 Resistance to multiple antibiotics; Z51.5 Encounter for palliative care
CPT/HCPCS: 36430; 36569; 36600; 49423; 49424; 71010; 71045; 74176; 74177; 74330; 75982; 75989; 76937; 80048; 80053; 80061; 80150; 80185; 80202; 81003; 82150; 82533; 82803; 82962; 83036; 83605; 83690; 83735; 83880; 83930; 83935; 84100; 84300; 84439; 84443; 85014; 85018; 85025; 85610; 85730; 86850; 86900; 86901; 86920; 87040; 87070; 87075; 87081; 87086; 87102; 87116; 88307; 90935; 92610; 93005; 93306; 93970; 94660; 97162; 99285-25